=== PATIENT | female | born 1940 | race Caucasian/White ===

== ENCOUNTER 2018-07-01 18:36 | Emergency (ER) | payer MEDICARE, SELFPAY ==
[2018-07-01 18:41] VITALS: BP 141/61; PULSE 58; RESP 14; TEMP 36.9; O2SAT 97; BMI 28.6
--- NOTE | 2018-07-01 18:55 | DI.US.S_ITS ---
PROCEDURE: US PERIPH VENOUS LOW EXTREM RT INDICATIONS: RLE swelling and pain. TECHNIQUE: Real-time imaging, as well as color and pulse Doppler interrogation, were performed of the lower extremity deep veins from the inguinal ligament to the popliteal fossa. COMPARISON: None. FINDINGS: The deep veins are normally compressible, and free of intraluminal thrombus. Color and pulse Doppler demonstrate normal phasic intraluminal flow. There is normal augmentation response to distal compression maneuver. Varicosity noted in the region of the palpable lump which contains thrombus. IMPRESSION: 1. No evidence of deep vein thrombosis involving the right lower extremity. 2. Thrombosed superficial venous varicosity in the right calf. Dictated by: Fiorella Ashton MD, PhD on 07/01/2018 at 20:06 Approved by: Fiorella Ashton MD, PhD on 07/01/2018 at 20:08
--- NOTE | 2018-07-01 19:10 | ED_ITS ---
HPI - Extremity Problem <Cristela De León PA-C - Last Filed: 07/01/18 21:55> General Chief complaint: Extremity Problem,Nontraumatic Stated complaint: SENT BY [facility] FOR US FOR THROMBOSIS Time Seen by Provider: 07/01/18 18:51 Source: patient Mode of arrival: ambulatory Limitations: no limitations History of Present Illness HPI Narrative: this 78-year-old female is sent by her PCP to evaluate for DVT. She states she has always had an enlarged varicose vein on her right calf. Two days ago she noticed a hard, tender nodule in that area and yesterday it seemed more swollen and tender extending more into the medial and lateral calf. She states that she was on her feet a lot yesterday and that leg was slightly swollen as well. She has elevated at today and it is better. She states that she tends to get mild leg swelling, more on the right, when she has been on her feet for long. But has never been bothersome. She denies any other new symptoms such as chest pain or dyspnea. She has not had any recent travel, no surgery or periods of immobilization. She does not have any history of blood clots Related Data Allergies Allergy/AdvReac Type Severity Reaction Status Date / Time No Known Drug Allergies Allergy Verified 07/01/18 18:45 Review of Systems <Cristela De León PA-C - Last Filed: 07/01/18 21:55> Review of Systems All systems reviewed & are unremarkable except as noted in HPI and below Exam <Cristela De León PA-C - Last Filed: 07/01/18 21:55> Narrative Exam Narrative: GENERAL APPEARANCE: Patient sitting comfortably, in no distress. NECK/THYROID: Neck supple, no JVD. LUNGS: Clear to auscultation bilaterally. HEART: Regular rate and rhythm without murmur, normal S1, S2, no S3 or S4. EXTREMITIES: No cyanosis, trace pedal edema. Ft are warm and pink with brisk cap refill. R. calf there is a palpable, tender, ropey varicosity with mild surrounding erythema, cool to touch, no tenderness elsewhere over the calf or lower extremity. There are some tiny varicosities on the right medial ankle as well. NEUROLOGIC: Alert and oriented, normal speech, gait and coordination. Initial Vital Signs Initial Vital Signs: Vital Signs Temperature 98.4 F 07/01/18 18:41 Pulse Rate 58 L 07/01/18 18:41 Respiratory Rate 14 07/01/18 18:41 Blood Pressure 141/61 H 07/01/18 18:41 Pulse Oximetry 97 07/01/18 18:41 <DO Spencer Rod Last Filed: 07/02/18 00:02> Initial Vital Signs Initial Vital Signs: Vital Signs Temperature 98.4 F 07/01/18 18:41 Pulse Rate 58 L 07/01/18 18:41 Respiratory Rate 14 07/01/18 18:41 Blood Pressure 141/61 H 07/01/18 18:41 Pulse Oximetry 97 07/01/18 18:41 Course <Cristela De León PA-C - Last Filed: 07/01/18 21:55> Orders Ordered: ED Orders 07/01/18 18:55 US periph venous low extrem rt Stat Vital Signs - 8 hr 07/01/18 18:41 Temperature 98.4 F Pulse Rate 58 L Respiratory Rate 14 Blood Pressure 141/61 H Pulse Oximetry 97 <DO Spencer Rod Last Filed: 07/02/18 00:02> Orders Ordered: ED Orders 07/01/18 18:55 US periph venous low extrem rt Stat Vital Signs - 8 hr 07/01/18 18:41 Temperature 98.4 F Pulse Rate 58 L Respiratory Rate 14 Blood Pressure 141/61 H Pulse Oximetry 97 MDM - Extremity (Nontraumatic) <Cristela De León PA-C - Last Filed: 07/01/18 21:55> Imaging Data Venous US: Radiologist's impression: [place] [address] Ultrasound Report Signed Patient: Albertina Bajwa RMR#: [id number] : 1940Acct:[id number] Age/Sex: 78 / FDate of Service: 07/01/18 Loc: ED Accession Number: [id number] Procedure: US periph venous low extrem rt Ordering Provider: Cristela De León P.A-C PROCEDURE: US PERIPH VENOUS LOW EXTREM RT INDICATIONS: RLE swelling and pain. TECHNIQUE: Real-time imaging, as well as color and pulse Doppler interrogation, were performed of the lower extremity deep veins from the inguinal ligament to the popliteal fossa. COMPARISON: None. FINDINGS: The deep veins are normally compressible, and free of intraluminal thrombus. Color and pulse Doppler demonstrate normal phasic intraluminal flow. There is normal augmentation response to distal compression maneuver. Varicosity noted in the region of the palpable lump which contains thrombus. IMPRESSION: 1. No evidence of deep vein thrombosis involving the right lower extremity. 2. Thrombosed superficial venous varicosity in the right calf. Dictated by: Fiorella Ashton MD, PhD on 07/01/2018 at 20:06 Approved by: Fiorella Ashton MD, PhD on 07/01/2018 at 20:08 Discharge Plan Departure Patient Disposition: Home Clinical Impression: Thrombophlebitis of superficial veins of right lower extremity Discharge Date/Time: 07/01/18 20:56 Interventions: ED Discharge Assessment Last Done: 07/01/18 20:56 Instructions: Superficial Thrombophlebitis Activity Restrictions/Additional Instructions: please return to the emergency room if you have any new symptoms such as chest pain or trouble breathing. Follow up with your PCP in a few days for recheck. Please elevate your leg for swelling as you have been and compression stockings may help comfort. You can increase your aspirin a little bit or take Aleve or ibuprofen as needed for pain . Warm packs may be helpful as well Referrals: Endy Carranza [Non-Staff] - <Endy Vann DO - Last Filed: 07/02/18 00:02> Cosign ED Attending Salvador Attestation: I was available for consultation during this patient's emergency department encounter
== END 2018-07-01 20:56 | disposition home or self-care (01) ==
PROVIDERS: Emergency Provider Internal Medicine
DX: I80.01 Phlebitis and thrombophlebitis of superficial vessels of right lower extremity (principal)
CPT/HCPCS: 93971; 99282; 99284

== ENCOUNTER → 2020-09-22 10:54 | Outpatient (CLI) | payer MEDICARE, SELFPAY ==
--- NOTE | 2020-09-22 11:01 | DI.RAD.S_ITS ---
PROCEDURE: XR HIP W PEL IF DONE RYAN MIN 4V INDICATIONS: HIP/ BACK PAIN TECHNIQUE: AP pelvis with lateral view(s) of the bilateral hip(s). COMPARISON: None. FINDINGS: Bones: No fractures or dislocations. Pelvic ring appears intact. No suspicious bony lesions. Note is made of symmetric moderately severe to severe hip joint osteoarthritis bilaterally. Soft tissues: The visualized bowel gas pattern is normal. No suspicious soft tissue calcifications. IMPRESSION: No trauma found. Moderately severe to severe hip joint space narrowing with near [id number] articulation bilaterally. Dictated by: Pancho Eric M.D. on 09/22/2020 at 12:53 Approved by: Pancho Eric M.D. on 09/22/2020 at 12:54
--- NOTE | 2020-09-22 11:01 | DI.RAD.S_ITS ---
PROCEDURE: XR LUMBAR SPINE 2-3V INDICATIONS: HIP/BACK PAIN TECHNIQUE: 3 views of the lumbar spine were acquired. COMPARISON: None. FINDINGS: Bones: 5 [id number] vertebrae are present. There is normal bony alignment. No vertebral body compression fractures. No suspicious bony lesions. Soft tissues: Overlying bowel gas pattern is normal. No suspicious soft tissue calcifications. IMPRESSION: There is a slight degree of convex rightward scoliosis centered at L2, and degenerative disc height reduction is mild along the L3 through S1 levels of the lumbosacral spine. Subluxation is not associated. No definite nerve root impingement. Dictated by: Pancho Eric M.D. on 09/22/2020 at 12:52 Approved by: Pancho Eric M.D. on 09/22/2020 at 12:53
== END ==
PROVIDERS: PCP Family Medicine; Referring Provider Family Medicine; Visit Provider Family Medicine
DX: M54.42 Lumbago with sciatica, left side (principal); M54.41 Lumbago with sciatica, right side; M25.551 Pain in right hip; M25.552 Pain in left hip; M16.0 Bilateral primary osteoarthritis of hip; M41.86 Other forms of scoliosis, lumbar region; G89.29 Other chronic pain
CPT/HCPCS: 72100; 73522

== ENCOUNTER → 2020-10-11 11:19 | Outpatient (CLI) | payer MEDICARE, SELFPAY ==
[2020-10-12 10:35] LABS: SARS CoV19 IgG Negative (Negative)
== END ==
PROVIDERS: PCP Family Medicine; Referring Provider Family Medicine; Visit Provider Family Medicine
DX: Z20.822 Contact with and (suspected) exposure to COVID-19 (principal)
CPT/HCPCS: 36415; 86769

== ENCOUNTER → 2020-11-10 12:16 | Outpatient (CLI) | payer MEDICARE, SELFPAY ==
[2020-11-10 21:20] LABS: COVID19 - ORCAS (NP or Nasal) Negative (Negative)
== END ==
PROVIDERS: PCP Family Medicine; Visit Provider Family Medicine
DX: Z20.822 Contact with and (suspected) exposure to COVID-19 (principal)
CPT/HCPCS: U0003

== ENCOUNTER → 2020-11-13 09:53 | Outpatient (CLI) | payer MEDICARE, SELFPAY ==
--- NOTE | 2020-11-13 | DI.ECHO.S_ITS ---
[facility]---------+ [facility] +---------+ : : [address] : : : : [id number] : : : : Phone: [phone]+ Echocardiogram Report + + :Name: LAITH PHELPS Study Date: 11/13/2020 Height: 67.5 in: :[facility] ReadingLocation: Weight: 195 lb : : Gender: Female BSA: 2.0 m2 : :: 1940 Age: 80 yrs BP: 152/74 mmHg: :Reason For Study: PALIPTATIONS : :Ordering Physician: JOHN, : :ED Performed By: Yareli Hastings : :Referring: ED LOPEZ D : + + Interpretation Summary The left ventricle is normal in size and wall thickness. Left ventricular systolic function appears normal without focal wall motion abnormalities. The ejection fraction is estimated to be 60-65%. LV ejection fraction has not changed. Diastolic parameters suggest probable normal left ventricular diastolic function and normal filling pressures. The right ventricle is normal in size and function. Pulmonary artery pressures cannot be estimated because of the lack of a measurable TR jet velocity but the IVC suggests a CVP of around 3 mmHg. The left atrium is severely dilated. Right atrial size is normal. There is no significant valvular heart disease. The aortic root is normal size. Procedure: A two-dimensional transthoracic echocardiogram with color flow and Doppler was performed. The study quality was technically adequate. Comparison is made with the echocardiogram of 05/08/2018. The patient was in sinus bradycardia with heart rates between 49-60 bpm during the exam. Left Ventricle: The left ventricle is normal in size and wall thickness. Left ventricular systolic function appears normal without focal wall motion abnormalities. The ejection fraction is estimated to be 60-65%. Diastolic parameters suggest probable normal left ventricular diastolic function and normal filling pressures. Right Ventricle: The right ventricle is normal in size and function. Atria: The left atrium is severely dilated. Right atrial size is normal. There is no Doppler evidence for an interatrial shunt. Mitral Valve: There is mild to moderate mitral annular calcification. The mitral valve is normal in structure and function. There is trace mitral regurgitation. Aortic Valve: The aortic valve is trileaflet. The aortic valve opens well. There is no aortic valve stenosis. No aortic regurgitation is present. Tricuspid Valve: The tricuspid valve is normal in structure and function. There is mild tricuspid regurgitation. Pulmonary artery pressures cannot be estimated because of the lack of a measurable TR jet velocity but the IVC suggests a CVP of around 3 mmHg. Pulmonic Valve: The pulmonic valve leaflets are thin and pliable; valve motion is normal. There is no pulmonic valvular regurgitation. There is no significant valvular heart disease. Great Vessels: The aortic root is normal size. The dimensions of the ascending aorta are normal. The IVC is of normal diameter and collapses greater than 50% with a sniff. This suggests a low right atrial pressure of 3 mm Hg. Pericardium/ Pleura There is no pericardial effusion. There is no pleural effusion. MMode/2D Measurements & Calculations LVIDd: 5.2 cm LVOT diam: 2.0 cm LVIDs: 3.4 cm Ao root diam: 2.7 cm FS: 34.4 % asc Aorta Diam: 3.3 cm EPSS: 0.79 cm Ao Arch Diam (Prox Trans): 3.0 cm IVSd: 1.1 cm LVPWd: 1.1 cm LV guillermo. diameter/BSA (cm/m^2): 2.6 LV sys. diameter/BSA (cm/m^2): 1.7 LA A2 area: 28.8 cm2 RA long axis: 4.9 cm LA A4 area: 25.8 cm2 RA area: 17.3 cm2 LA length (vol): 6.2 cm RA vol: 51.4 ml LA vol: 102.4 ml RA : 25.6 ml/m2 LA vol index: 50.9 ml/m2 IVC diam: 1.8 cm RVD1 (basal): 3.3 cm TAPSE: 2.6 cm Doppler Measurements & Calculations Ao V2 max: 141.2 cm/sec LVOT Max Tres: 95.1 cm/sec Ao V2 mean: 98.2 cm/sec LV V1 max P.6 mmHg Ao max P.0 mmHg LV V1 VTI: 26.9 cm Ao mean P.3 mmHg MONE(I,D): 2.2 cm2 Ao V2 VTI: 37.8 cm MONE(V,D): 2.1 cm2 sev ratio: 0.71 MONE indexed to BSA (cm^2/m^2): 1.1 MV E max tres: 82.2 cm/sec TR max tres: 267.3 cm/sec MV A max tres: 79.9 cm/sec TR max P.7 mmHg MV E/A: 1.0 PA V2 max: 96.0 cm/sec Med Peak E' Tres: 5.7 cm/sec PA V2 mean: 66.8 cm/sec E/E' med: 14.5 PA mean P.0 mmHg Lat Peak E' Tres: 8.3 cm/sec PA pr(Accel): 20.8 mmHg E/E' lat: 9.9 E/e' average: 12.2 MV dec time: 0.26 sec SV(LVOT): 84.6 ml Reading Physician:07:22 PM
--- NOTE | 2020-11-13 15:23 | PM.TREADMILL ---
Cardiac Stress Test Report Referral & Results Date Patient Seen: 11/13/20 Time Patient Seen: 15:23 Requesting provider: Endy Carranza Indication: palpitations Rest ECG: Sinus rhythm Procedure Note: Standard Fracisco protocol, 4:46, 4.6 METS Good exercise capacity, GAURANG -4% Nomal hemodynamic response to exercise No chest pain or anginal symptoms No significant ST changes at peak exercise Rare PVC, couplet Impression: Normal exercise stress test Nuclear images pending Please note: Actual ECG tracings can be found in the PACS system.
--- NOTE | 2020-11-13 18:47 | DI.NM.S_ITS ---
DATE OF SERVICE: 11/13/2020 PROCEDURE PERFORMED: Exercise treadmill stress and rest myocardial perfusion imaging study with gating to assess ejection fraction and regional wall motion. ORDERING PROVIDER: Dr. Endy Carranza. INDICATIONS: The patient is an 80-year-old female with palpitations and an abnormal ECG. CARDIAC STRESS: The patient was able to exercise for 4 minutes 46 seconds on a standard Fracisco protocol suggesting average exercise capacity with an GAURANG of -4%. She had a normal heart rate response, achieving a maximum heart rate of 135 BPM (96% of her predicted maximum). She had a moderate hypertensive blood pressure response to exercise with a resting blood pressure of 160/84, increasing to a maximum of 220/90. Her resting ECG shows sinus rhythm with fairly normal ST segments. With exercise, there were no significant ST-segment shifts. She had occasional PVCs, rarely in couplets. It is notable that with exercise, criteria for right atrial enlargement became more prominent. At 2 minutes 25 seconds of exercise at a heart rate of 121 BPM, 25.4 millicuries of technetium-99m Myoview was injected and she was imaged 15 minutes later using a gated SPECT acquisition protocol. Earlier in the day while at rest, she had been injected with 12.5 millicuries of technetium-99m Myoview was imaged 30 minutes later, again using a gated SPECT acquisition protocol. FINDINGS: 1. Raw Data: There is fair myocardial tracer uptake with mild breast shadows noted. Lung/heart ratio was normal at 0.39 with a TID ratio at the upper limits of normal at 1.20, although it is not evident visually. 2. Quantitated gated SPECT: Post-stress ejection fraction is estimated at 74% without any focal wall motion abnormality and specifically the inferior wall appears to have brisk contractility. The resting ejection fraction is 80% with an end- diastolic volume of 88 mL. 3. Myocardial perfusion imaging: Post-stress supine images show a mild perfusion defect in the mid inferior wall extending to but not including the apex in a pattern that would be consistent with diaphragmatic attenuation, supported by its complete resolution on the prone images, revealing a normal perfusion pattern. The resting images show a similar perfusion pattern to that of the post-stress supine images with minimal, if any, improvement inthe defect. IMPRESSION: 1. Normal myocardial perfusion study for ischemia. 2. Mild fixed inferior defect that resolves with prone imaging, most consistent with diaphragmatic attenuation artifact. There is no compelling evidence for myocardial ischemia or previous myocardial infarction. 3. Normal left ventricular systolic function without focal wall motion abnormality. 4. Average exercise capacity without angina or ECG evidence of ischemia. She had a hypertensive blood pressure response to exercise with occasional PVCs, rarely in couplets, with stress and criteria for right atrial enlargement became more prominent with exercise. Albertina Bajwa - /fawad/[facility] doc#: [id number]/job#: [id number] dd: 11/13/2020 16:48:00 dt: 11/13/2020 18:17:00 DICTATING MD/COPIES TO: Iván Don MD; Endy Carranza M.D. COPIES MNE: YVES;
== END ==
PROVIDERS: PCP Family Medicine; Referring Provider Family Medicine; Visit Provider Family Medicine
DX: R00.2 Palpitations (principal); I07.1 Rheumatic tricuspid insufficiency
CPT/HCPCS: 78452; 93017; 93306; A9502

== ENCOUNTER → 2021-03-07 08:37 | Outpatient (CLI) | payer MEDICARE, SELFPAY ==
[2021-03-07 19:15] LABS: Add Manual Diff / Slide Review NO; Basophils Absolute Auto 0 /uL (0-100); Basophils Percent Auto 0.5 % (0-2); Eosinophils Absolute Auto 200 /uL (0-450); Eosinophils Percent Auto 2.1 % (2-4); Hematocrit 41.8 % (36-46); Hemoglobin 13.6 g/dL (12.0-16.0); Lymphocytes Absolute Auto 2400 /uL (1100-4500); Lymphocytes Percent Auto 26.7 % (25-40); Mean Corpuscular HGB Conc 32.5 % (30-36); Mean Corpuscular Hemoglobin 29.2 PG (26-34); Mean Corpuscular Volume 89.7 fL (80-100); Monocytes Absolute Auto 700 /uL (0-900); Monocytes Percent Auto 8.3 % (3-14); Neutrophils Absolute Auto 5600 /uL (1500-7000); Neutrophils Percent Auto 62.4 % (50-75); Platelet Count 297 X10^3/uL (150-400); Red Blood Cell Count 4.66 X10^6/uL (4.0-5.2); White Blood Cell Count 8.9 X10^3/uL (4.5-11.0)
[2021-03-07 19:28] LABS: BUN Creatinine Ratio 22.7 (6-22); Blood Urea Nitrogen 22 mg/dL (7-17); Calcium 9.8 mg/dL (8.4-10.2); Carbon Dioxide 29 mmol/L (22-32); Chloride 101 mmol/L (98-107); Estimated Glomerular Filt Rate 55.1 mL/min (>60); Glucose 97 mg/dL (80-110); HEMOLYSIS < 15 (0-50); Potassium 4.3 mmol/L (3.4-5.1); Sodium 137 mmol/L (137-145)
[2021-03-07 19:42] LABS: Hemoglobin A1C% w Est Avg Glu 5.1 % (4.0-6.0)
[2021-03-08 19:33] LABS: Appearance Urine UA CLEAR; Bilirubin Urine UA NEGATIVE (NEGATIVE); Color Urine UA YELLOW; Glucose Urine UA NEGATIVE (Negative); Ketones Urine UA NEGATIVE (NEGATIVE); Leukocyte Esterase Urine UA TRACE (NEGATIVE); Nitrite Urine UA NEGATIVE (Negative); Occult Blood Urine UA NEGATIVE (Negative); Protein Urine UA TRACE (Negative); Urobilinogen Urine UA 0.2 E.U./dL (0.2)
[2021-03-08 19:57] LABS: Amorphous Sediment Urine 1+; Bacteria Urine Few (2-10); Mucus Urine 1+ (Negative); Squamous Epithelial Cell Urine 1-5 /HPF (0-5/HPF); WBC Urine 5-10/HPF (0-5/HPF)
[2021-03-08 19:58] LABS: Culture Indicated Urine Specimen Cultured
== END ==
PROVIDERS: Orthopaedic Surgery
DX: Z01.812 Encounter for preprocedural laboratory examination (principal); N39.0 Urinary tract infection, site not specified; R00.2 Palpitations; R73.9 Hyperglycemia, unspecified
CPT/HCPCS: 80048; 81001; 83036; 85025; 87086

== ENCOUNTER → 2021-04-02 14:09 | Outpatient (CLI) | payer MEDICARE, SELFPAY ==
[2021-04-02 17:05] LABS: COVID19 -Nasal RAPID Negative (Negative)
== END ==
PROVIDERS: PCP Physician Assistant; Visit Provider Nurse Practitioner Family
DX: Z01.812 Encounter for preprocedural laboratory examination (principal); Z20.822 Contact with and (suspected) exposure to COVID-19
CPT/HCPCS: 87635; C9803

== ENCOUNTER 2021-04-03 06:09 | Day surgery (SDC) | payer MEDICARE, SELFPAY ==
[2021-03-30 11:54] VITALS: BMI 28.8
[2021-04-03] VITALS (16 sets, daily range): BP systolic 103–152; BP diastolic 33–75; PULSE 51–63; RESP 10–18; TEMP 35.7–37.3; O2SAT 95–98; BMI 28.5
--- NOTE | 2021-04-03 06:32 | DI.RAD.S_ITS ---
PROCEDURE: XR HIP W PEL IF DONE RT 2V INDICATIONS: inner op TECHNIQUE: Four intraoperative fluoroscopic view(s) of the hip acquired. COMPARISON: [facility], , XR HIP W PEL IF DONE RYAN 3TO4V, 09/22/2020, 11:04. FINDINGS: Intraoperative views of the pelvis and right hip demonstrate a right hip prosthesis in place. Appropriate alignment with internal and external rotation. No unexpected fractures. IMPRESSION: Intraoperative fluoroscopy for right hip arthroplasty. Dictated by: Adrianne Alanis M.D. on 04/03/2021 at 14:54 Approved by: Adrianne Alanis M.D. on 04/03/2021 at 14:55
[2021-04-03] MEDS: ACETAMINOPHEN 325 MG TABLET 975 MG PO (07:13)
[2021-04-03] MEDS: CELECOXIB 200 MG CAPSULE PO (07:13)
[2021-04-03] MEDS: PREGABALIN 75 MG CAPSULE PO (07:13)
[2021-04-03] MEDS: VANCOMYCIN 1,000 MG/200 ML PIGGYBACK 200 MG IV (07:13)
--- NOTE | 2021-04-03 07:35 | PM.PREOP ---
Pre-operative Note COVID-19 COVID-19 status: Negative Interval Note History & Physical reviewed/Exam performed by Physician: Yes Changes to H&P: No
--- NOTE | 2021-04-03 07:36 | PM.OP.1 ---
Operative Date/Time/Diagnoses Date of procedure: 04/03/21 Time of procedure: 07:50 Pre-op diagnosis: right hip OA Post-op diagnosis: same Procedure & Clinicians Procedure: Right total hip arthroplasty anterior approach Same procedure as scheduled: Yes Indications: The patient has had progressively worsening right hip pain with radiographic changes consistent with arthritis. Non-operative management has failed and the patient has requested total hip replacement. The risks, benefits and alternatives to surgery were discussed with the patient prior to proceeding. Risks discussed included, but were not limited to, failure to relieve pain, leg length discrepancy, dislocation, stiffness, infection, nerve damage, deep venous thrombosis, pulmonary embolism, stroke, coma, heart attack, permanent paralysis and , as well as the potential need for eventual revision of the prosthetic. Surgeon: Candelaria To Vending Machine Mechanic: Naresh Araiza Anesthesia Type: General and Spinal Operative Notes Findings: Severe right hip osteoarthritis, adequate stability, soft bone Closure Type: primary Specimen(s): none sent Prosthetic devices, grafts, tissues, transplants, or devices: To and Nephew anthology size 7 standard offset,-3 Oxinium head, 52 mm cup R3, one 6.5 mm screw, neutral poly liner Estimated Blood Loss (mL): 250 Blood products transfused: none Procedure in detail: The patient was brought to the operating room. Patient was carefully positioned in the supine position. Time-out was performed and antibiotics were given. Anesthesia was induced. She was positioned in the on the table in order to allow hyperextension of the hip. The rightlower extremity was prepped and draped in a standard sterile fashion. An anterior right hip incision was made 1 fingerbreadth lateral to the anterior superior iliac spine and extended distally towards the greater trochanter. Dissection was carried out through skin and subcutaneous tissues. Superficial hemostasis was achieved. The fascia over the tensor fascia edenilson was defined and incised with a knife. Two Allis clamps were used to grasp the fascia. Tensor fascia edenilson was retracted laterally. A gelpi retractor was placed. Dissection was carried out down along the neck. There was good visualization of the femoral neck. A Cobra was placed superior to the neck and the gluteus fibers were carefully stripped from that superior aspect of the capsule. A 2nd retractor was placed along the inferior aspect of the neck. The rectus insertion along the capsule was partially released. A 3rd retractor that was then gently placed over the rim of the acetabulum under the rectus. Capsule was carefully incised and released from the intertrochanteric line circumferentially superior to the mid sagittal line and inferiorly to the mid sagittal line until the lesser trochanter was palpable. A tag stitch was placed both in the superior and inferior limb of the capsular insertion. Along the acetabulum capsule was also released up to the mid sagittal 12:00 position. A portion of the labrum was resected. A saw was used to perform an osteotomy at the level of the intertrochanteric line and the junction of the superior femoral neck leaving approximately 1 finger breath of residual inferior neck above the lesser trochanter. A 2nd cut was made along the femoral neck at the base of the head and a napkin ring of neck was removed. Corkscrew was placed in the femoral head and the head was removed without difficulty. Retractors were then repositioned around the acetabulum. Residual labrum was resected and additional osteophytes were removed. A reamer that was 4 mm below the templated size was placed by hand in the acetabulum and it was reamed to centralize the acetabulum. It was then reamed up to 2 under the templated size and fluoroscopy was brought in to confirm the position of the reaming and depth of reaming. I reamed 1 under the anticipated size. A trial cup was placed and noted that it was appropriately sized and fluoroscopy confirmed position and depth. The component was open and inserted without difficulty fluoroscopic imaging was used to confirm that the cup had been adequately seated and was well positioned. It was further stabilized with a single screw. poly liner was placed. The cup was tested and noted to be stable. Attention was then directed to the femur. The femur was gently hyperextended additional capsular release was performed as needed in order to allow adequate visualization of the proximal femur with elevation of the femur. Patient was placed in a hyperextended slightly adducted position with maximum external rotation. Box osteotome was used to check for any residual neck as well as sclerotic bone along the trochanter. [place] pepper was placed in the femur. Additional broaching was performed. Canal finder was used to determine the alignment of the canal and position. Size 1 broach was placed. The canal was then appropriately broached up to the templated size as long as there was adequate stability of the broach and serial advancement of the broach without excessive impingement. Specific attention was directed at avoiding varus attempting to direct the distal aspect of the broach more anteriorly and avoiding excessive anteversion. Trial reduction showed acceptable range of motion, good stability, no posterior impingement, buddhism of leg length and appropriate lateral shuck. I also hyperflexed the hip and checked that there was no impingement anteriorly and there was good stability with flexion, adduction and internal rotation. Marcaine and Exparel were injected. The stem was placed without difficulty. Repeat trial reduction and x-ray showed acceptable overall position, length, and no evidence of the femoral fracture. Final head was placed. Wound was meticulously irrigated with normal saline. The hip was reduced and additional Exparel and Marcaine were injected. The capsule was closed with interrupted nonabsorbable sutures. The fascia of the tensor was closed with interrupted and running Vicryl. No drain was placed. Any tensor fascia edenilson muscle that appeared to be contused or injured which was a minimal amount was carefully resected. Capsule around the tensor was injected with Exparel and Marcaine. The skin was closed with barbed stitches for the subcutaneous tissue and skin. We also used surgical glue. The wound was dressed sterilely. Brief Betadine soak was also used and was meticulously irrigated with normal saline. Patient was transferred to recovery room in satisfactory condition. Complications: none Post-operative Condition: stable Disposition: Acute Care Plan for aftercare: The patient will be maintained on a standard total hip replacement protocol with weight bearing as tolerated and anterior hip precautions. The patient will receive Aspirin and sequential compression devices for DVT prophylaxis. The patient will be discharged home when safe for the home environment.
[2021-04-03] MEDS: TRANEXAMIC ACID 1,000 MG VIAL 1000 MG INJ ×2 (08:15→10:43)
--- NOTE | 2021-04-03 08:15 | SUR.PREOP ---
Hearing aids received from [employer] , placed in pt's belonging bag.
[2021-04-03] MEDS: CEFAZOLIN 1 GM VIAL IV (08:16)
--- NOTE | 2021-04-03 08:34 | SUR.OPER ---
Supine on padded [place] table with bilateral legs secured in padded positioning boots and suspended in positioning spars, operative leg in traction per surgeon. Head on one pillow. Arm on non-operative side secured on padded armboard <90 degrees abduction. Arm on operative side padded and resting across chest then secured with tape over sheet. Padded perineal post in place per surgeon.
[2021-04-03] MEDS: BUPIVACAINE LIPOSOME 266 MG/20 ML VIAL INJ (08:46)
[2021-04-03] MEDS: BUPIVACAINE 0.25% (PF) VIAL 30 ML INJ (08:48)
[2021-04-03] MEDS: EPINEPHrine 1 MG/ML SUBCUT (08:49)
--- NOTE | 2021-04-03 09:00 | DI.RAD.S_ITS ---
PROCEDURE: XR HIP W PEL IF DONE RT 2V INDICATIONS: Right ANTERIOR HIP TOTAL TECHNIQUE: AP pelvis with lateral view(s) of the right hip(s). COMPARISON: [facility], CAT, XR HIP W PEL IF DONE RT 2V, 04/03/2021, 9:30. FINDINGS: Bones: Patient is status post right hip arthroplasty. The prosthesis appears in appropriate position. No unexpected fractures. There are severe degenerative changes involving the left femoroacetabular joint and moderate changes involving the pubic symphysis. Soft tissues: Expected postoperative gas in the soft tissues. No unusual retained foreign body IMPRESSION: 1. Expected appearance post right hip arthroplasty. 2. Severe left hip arthropathy. Dictated by: Adrianne Alanis M.D. on 04/03/2021 at 14:55 Approved by: Adrianne Alanis M.D. on 04/03/2021 at 14:57
[2021-04-03] MEDS: LACTATED RINGERS 1,000 ML 42 ML IV (10:49)
[2021-04-03] MEDS: OXYCODONE IR 5 MG TABLET PO ×2 (11:54→12:47)
[2021-04-03] MEDS: LACTATED RINGERS 1,000 ML 125 ML IV ×2 (12:24→20:43)
[2021-04-03] MEDS: IBUPROFEN 400 MG TABLET PO ×3 (12:47→20:43)
--- NOTE | 2021-04-03 13:55 | PT.IIE ---
Current Diagnoses Unilateral primary osteoarthritis, right hip (04/03/21) Surgery Performed Operation Date: 04/03/21 07:45 Actual Procedures p Total Hip Arthroplasty/Anterior Approach(Right) - Candelaria To MD Medical History (Last Updated 03/30/21 @ 13:07 by Leigh Jaeger RN) Arrhythmia Colon cancer screening History of Mohs micrographic surgery for skin cancer Hypertension, essential Meningioma Osteoarthritis Routine general medical examination at health care facility Screening for breast cancer Screening for lipid disorders Screening for osteoporosis Venous stasis Physical Therapy Inpatient Evaluation/Re-Eval M1 PT/OT-IP Prior Functional Status Start: 04/03/21 15:13 Freq: NEEDED Status: Active Protocol: Document 04/03/21 13:55 AB (Rec: 04/03/21 15:32 AB [id number]) Medical Review Prior Functional Status Medical History Reviewed Yes Communication able to make needs known but has short term memory issues Mobility and Gait pt stated that she is independent with all mobilities and ambulation without AD Social History Household Members none Living Arrangements House Number of Floors (Floors) 3 or More Floors Number of Stairs To Enter/Railing? 8 steps R rail ascending to enter the house; can use the ramp from the back but needs to walk farther > 50 ft 18 steps with R rail ascending to get to bedroom level Home Environment High Toilet,Walk in Shower Home Equipment Front Wheel Walker,Shower Seat without Backrest Additional Social History Comment pt stated that her daughter will be assisting her at home M2 PT-IP Current Condition Start: 04/03/21 15:13 Freq: NEEDED Status: Active Protocol: Document 04/03/21 13:55 AB (Rec: 04/03/21 15:32 AB [id number]) Physical Therapy Current Condition Current Condition Evaluation Date 04/03/21 Treatment Diagnosis s/p R GELACIO anterior approach; difficulty in walking Onset Date 04/03/21 Precautions Anterior Hip Precautions No Hip Extension,No Hip External Rotation Weight Bearing Status Weight Bearing Status Weight Bear as Tolerated Allowed Weight Bearing Amount (enter % RLE WBAT or #) (%) M3 PT-IP Subjective Start: 04/03/21 15:13 Freq: NEEDED Status: Active Protocol: Document 04/03/21 13:55 AB (Rec: 04/03/21 15:32 AB [id number]) Subjective Physical Therapy Visit Type Type Initial Evaluation Visit Start Time 13:55 Visit Stop Time 15:08 Total Visit Minutes 73 Number of PRINCIPAL STATISTICAL PROGRAMMER Visits 0 Physical Therapy Visit Comments Patient Comments agreeable to do PT Therapy Pain Assessment Pain When Pain Assessed At Rest Pain Present Pain Present Pain Reported Location Right Hip Intensity 1 Scale Used Numeric (0 - 10) Pain Management Techniques Apply Cold,Distraction, Modification of Treatment,Re- positioning,Timing of Activity with Medications M4 PT-IP Mobility and Gait Start: 04/03/21 15:13 Freq: NEEDED Status: Active Protocol: Document 04/03/21 13:55 AB (Rec: 04/03/21 15:32 AB [id number]) PT-Bed Mobility Assessment Supine to Sit Supine to Sit Standby Assistance Sit to Supine Sit to Supine Standby Assistance PT-Transfer Assessment Sit to and From Stand Sit to and from Stand Minimal Assistance,Moderate Assistance,1 Person Assistance ,Use of Upper Extremities Equipment Transfer Assistive Device Gait Belt,Front Wheeled Walker Orthotic/Prosthetic Devices or Brace: No Transfers Transfer Destination Bedside Commode Transfer Technique ambulated Transfer Ability Level of Assist Minimal Assistance,Moderate Assistance,1 Person Assistance ,Use of Upper Extremities Comments Mobility Comments educated pt regarding hip precautions. pt has short term memory issues and requires cues to recall. pt stated that the meds is affecting her thinking. BP supine: 137/75. pt completed supine to sit SBA and cues. required increase time to complete task and pt stated that she is thinking things through to complete but is still confuse on how to move BLE to maintain her precautions. pt was able to sit on EOB SBA. c/o dizziess. BP: 155/76. completed sit to stand min to mod A and cues. ambulated ~ 5 ft using FWW but with very slow movement and increase reaction time to complete tasks as directed. opted to place bedside commode next to pt for safety due to pt's difficulty following directions. pt sat on bedside commode but unable to use. completed sit to stand from bedside commode min to mod A and ambulated ~ 5 ft back to bed using FWW min to mod A and cues. completed sit to supine SBA and cues. pt can be defensive when instructed and stated that she knows how to do it. pt with B knee bend and is leaning trunk backwards to be able to lift BLE up on bed needing cues to control trunk to be able to position head into the pillow and not on the other side of the bed. positioned pt on the bed. educated pt on techniques on how to do bed mobility but the stated that she feels stronger on how she did it. informed pt that she can do it as long as she maintain her hip precautions and is safe. call light and table placed next to pt. BP: 157/78. set up caregiver training 1030 am tomorrow 04/04. Gait Assessment Gait Gait Assistance Required: Minimum Assistance,Moderate Assistance Distance (Feet) 5 Able to Maintain Weight Bearing Status Yes During Gait Assistive Devices Assistive Device Gait Belt,Front Wheeled Walker Orthotic/Prosthetic Devices or Brace: No Gait Deviations General Gait Pattern Decreased Stride Length, Decreased Feet Clearance Factors Limiting Gait Function Factors Limiting Gait Function Decreased Activity Tolerance, Decreased Strength,Difficulty Following Directions,Limited Range of Motion,Pain,Poor Balance,Poor Safety Awareness PT-Balance Assessment Sitting Balance and Reactions Static Sitting Balance Ability Good Dynamic Sitting Balance Ability Good Standing Balance and Reactions Static Standing Balance Ability Fair Dynamic Standing Balance Ability Fair Device Used FWW M5 PT-IP Objective Assessments Start: 04/03/21 15:13 Freq: NEEDED Status: Active Protocol: Document 04/03/21 13:55 AB (Rec: 04/03/21 15:32 AB [id number]) Orientation Orientation/Cognition Level of Alertness Confusional State Orientation Name Language Function Ability Hard of Hearing Safety Awareness Decreased Safety Awareness Memory Description Short Term Impaired Gross Range of Motion Lower Extremity ROM Assessment Within Functional Limits Strength Lower Extremity Strength Assessment Right Impaired Hip 3+/5 Knee 4-/5 Muscle Tone Muscle Tone WNL Yes M6 PT-IP Treatment Start: 04/03/21 15:13 Freq: NEEDED Status: Active Protocol: Document 04/03/21 13:55 AB (Rec: 04/03/21 15:32 AB [id number]) Physical Therapy Treatment Education Education Provided Precautions,Weight Bearing Status,Post-Op Packet,Safety M7 PT-IP Assessment and Plan Start: 04/03/21 15:13 Freq: NEEDED Status: Active Protocol: Document 04/03/21 13:55 AB (Rec: 04/03/21 15:32 AB [id number]) PT Summary Assessment and Plan Potential Rehabilitation Potential Good Status of Condition at Evaluation Evolving Summary Impairments Pain,ROM,Strength,Balance, Coordination,Sensation,Tone, Cognition,Bed Mobility, Transfers,Gait,Activity Tolerance Assessment Summary pt requiring min to mod A with mobility using FWW and requires cues for safety. pt requires increase time to completing tasks and has a delay in following directions. caregiver training set up for tomorrow 04/04 at 1030 am. pt will call her daughter to come in. will continue to assess progress with mobility for safe d/c home. will also have to conduct stair climbing training. Goals Bed Mobility Goal Independent Transfer Goal Independent,Front Wheeled Walker Gait Goal Independent,Front Wheel Walker Gait Distance 200 Other Goals up/down 18 steps using R rail SBA Days to Meet Goals 5 Frequency of Treatment Frequency Of Treatment Twice a Day Treatment Plan Physical Therapy Treatment Plan Bed Mobility Training,Transfer Training,Gait Training, Therapeutic Exercise,Balance Retraining,Post Op Education, Discharge Planning,Hot or Cold Pack,Neuromuscular Re-ed, Coordination Retraining,Manual Therapy Other Recommendations and Next Treatment caregiver trainin/15 Wed Focus 1030am Precautions Anterior Hip Precautions No Hip Extension,No Hip External Rotation Other Precautions RLE WBAT Recommendations To Nursing Amount of Assist Needed 1 Person Assist Discharge Recommendations PT Discharge Recommendations Home with 24/ Assist Available,Outpatient PT Transportation Needs at Discharge Private Vehicle
[2021-04-03] MEDS: CEFAZOLIN 1 GM VIAL 2 GM IV (16:11)
[2021-04-03] MEDS: ACETAMINOPHEN 325 MG TABLET 650 MG PO ×2 (16:11→20:44)
--- NOTE | 2021-04-03 16:16 | PC.NURSE ---
Late entry for 1200: Sandra Russo at bedside asking patient admission questions. IV left forearm patent and LR started at 125 ml/hr. Skin assessment done by flex o writer operator of this note and 2nd RN Dominga. Pt is alert and oriented, no distress. On room air. Placed on continuous pulse ox and vitals are stable. Call light within reach. Medicated at 1240 by Sandra RUSSO for c/o pain. 1400: Pt up with PT walking in room with walker. Attempted to void in BSC but unable to at this time. Report given to Meena RUSSO and she was notified. Will continue to monitor.
[2021-04-03] MEDS: METOPROLOL IR 25 MG TABLET 12.5 MG PO (20:44)
[2021-04-03] MEDS: ASPIRIN EC 81 MG TABLET PO (20:44)
[2021-04-03] MEDS: DOCUSATE 100 MG CAPSULE PO (20:44)
[2021-04-04] MEDS: IBUPROFEN 400 MG TABLET PO ×3 (00:15→08:54)
[2021-04-04] MEDS: CEFAZOLIN 1 GM VIAL 2 GM IV (00:15)
[2021-04-04 05:35] LABS: Hematocrit 30.9 % (36-46); Hemoglobin 10.3 g/dL (12.0-16.0)
[2021-04-04 05:40] VITALS: BP 119/54; PULSE 63; RESP 16; TEMP 36.5; O2SAT 96
--- NOTE | 2021-04-04 08:02 | P.DS_ITS ---
History of Present Illness History of Present Illness Date Patient Seen: 04/04/21 Time Patient Seen: 08:02 Chief complaint: Right hip osteoarthritis and pain Narrative: The patient is complaining of mild right hip pain this morning, well controlled with current pain medication. She denies nausea vomiting. No numbness or tingling. No fevers/chills/night sweats. Overall she is feeling well and would like to be discharged home today to make it for the 12:00 p.m. ferr. Discharge Providers Provider Discharge Date: 04/04/21 Primary care physician: Lizbeth Diaz PA-C Consults: 04/03/21 06:32 Consult to Anesthesiology Routine Comment: Consulting Provider: Anesthesiologist Reason for consultation: Regional block for post operative pain control 04/03/21 12:02 Consult to Discharge Planning Routine Comment: Consult to Physical Therapy Evaluate & Treat Comment: Physician Instructions: post op GELACIO protocol Consult to Respiratory Therapy Evaluate & Treat Comment: Physician Instructions: Evaluate and treat Discharge provider: Lucrecia Posada PA-C Summary Hospital Course Discharge Diagnosis: Right hip osteoarthritis Hospital Course: Procedure: Right total hip arthroplasty anterior approach Same procedure as scheduled: Yes Indications: The patient has had progressively worsening right hip pain with radiographic changes consistent with arthritis. Non-operative management has failed and the patient has requested total hip replacement. The risks, benefits and alternatives to surgery were discussed with the patient prior to proceeding. Risks discussed included, but were not limited to, failure to relieve pain, leg length discrepancy, dislocation, stiffness, infection, nerve damage, deep venous thrombosis, pulmonary embolism, stroke, coma, heart attack, permanent paralysis and , as well as the potential need for eventual revision of the prosthetic . Surgeon: Candelaria To Filling Layer Up: Naresh Araiza Anesthesia Type: General and Spinal Operative Notes Findings: Severe right hip osteoarthritis, adequate stability, soft bone Closure Type: primary Specimen(s): none sent Prosthetic devices, grafts, tissues, transplants, or devices: [employer] anthology size 7 standard offset,-3 Oxinium head, 52 mm cup R3, one 6.5 mm screw, neutral poly liner Estimated Blood Loss (mL): 250 Blood products transfused: none Status at Discharge Cognitive/behavioral status at discharge: oriented Functional status at discharge: uses cane/walker Overall status at discharge: patient is progressing back to baseline Exam Vital Signs (past 8 hours): - 04/04/21 05:40 Temperature 97.7 F Pulse Rate 63 Respiratory Rate 16 Blood Pressure 119/54 L Pulse Oximetry 96 Oxygen Delivery Method Room Air Oxygen Flow Rate 0 Narrative Exam Narrative: Pleasant 81-year-old resting comfortably in bed, no acute distress. The patient was evaluated by both Dr. To and myself. Incision is clean/dry/intact. Bilateral lower extremity motor functions are grossly intact. Bilateral sensation is grossly intact to light touch. Legs are warm and dry, calves are soft, nontender to palpation. Objective Labs Result Diagrams: 04/04/21 05:05 Labs: Laboratory Results - last 24 hr 04/04/21 05:05 Hgb 10.3 L Hct 30.9 L PFSH Medical History Arrhythmia Colon cancer screening History of Mohs micrographic surgery for skin cancer Hypertension, essential Meningioma Osteoarthritis Routine general medical examination at health care facility Screening for breast cancer Screening for lipid disorders Screening for osteoporosis Venous stasis Surgical History History of bladder suspension procedure (~1994) Hx of partial thyroidectomy (~1961) Status post tonsillectomy and adenoidectomy Social History household members: none Smoking Status: Never smoker alcohol intake: current Discharge Assessment & Plan Assessment and Plan Assessment: Stable status post right total hip arthroplasty, anterior approach Plan of Treatment: -DC home today after cleared by PT -mobilize with PT, maintaining anterior hip precautions, WBAT -Aspirin 81 mg b.i.d. x6 weeks for DVT prophylaxis -continue with Tylenol, ibuprofen and Oxy as needed for pain Discharge Plan Discharge Plan Patient Disposition: Home Discharge orders & Medications Discharge Orders: Discharge (Order); Ordered 04/04/21 Ordered By: Lucrecia Posada Prescriptions: New ibuprofen 400 mg Tablet 400 mg PO Q4HR Qty: 30 RF: 0 oxycodone 5 mg Tablet 5 mg PO Q3HR PRN (Reason: Pain, Moderate (4-6)) Qty: 42 RF: 0 famotidine [Pepcid AC] 20 mg tablet 20 mg PO BID PRN (Reason: To protect stomach from ibuprofen/aspirin) Qty: 30 RF: 0 Continued acetaminophen 500 mg tablet 500 mg PO Q4H MDD 6 tablets (3000 mg) per day PRN (Reason: Pain) Qty: 90 RF: 0 nitroglycerin 0.4 mg tablet, sublingual 0.4 mg sublingual Q5M PRN (Reason: Chest Pain) RF: 0 metoprolol tartrate 25 mg tablet See Rx Instructions .ROUTE .COMPLEX RF: 0 Changed aspirin [Adult Low Dose Aspirin] 81 mg tablet,delayed release (DR/EC) 81 mg PO BID PRN (Reason: To prevent blood clots x6 weeks) Qty: 90 RF: 0 Follow up/Referrals: Lizbeth Diaz PA-C [Primary Care Provider] - Candelaria To MD [Physician] - (10-14 days for postoperative visit) Diet/Activity/Treatments Diet: Diet as Tolerated and Regular Activity: -weightbearing as tolerated with front wheel walker -maintain anterior hip precautions -continue with home exercises as instructed by Physical therapy, continue walking Cold/Heat Therapy: -use ice as needed for pain Other treatments: -aspirin 81 mg twice daily x6 weeks to prevent blood clots -Tylenol (max 3000 mg per day) plus ibuprofen for pain -use oxy 1/2-1-2 tablets as needed for pain -use OTC constipation medications as needed with Oxy -Use Pepcid OTC as needed to protect stomach from ibuprofen and aspirin Skin/Wound/Dressing Care Report to your healthcare provider any signs of infection, such as:: chills, fever, night sweats, unusual drainage and unusual redness Dressing: -keep dressing intact -okay to shower with incision covered -call the office if dressing becomes wet, soiled, saturated Visit Report/Discharge Packet Instructions: DI for Hip Replacement Stand Alone Forms: Surgery Discharge Discharge Data Primary Care Provider: Lizbeth Diaz Attending Provider: Candelaria To
[2021-04-04 08:03] VITALS: BP 129/47; PULSE 61; RESP 17; TEMP 36.7; O2SAT 95
[2021-04-04] MEDS: METOPROLOL IR 25 MG TABLET PO (08:54)
[2021-04-04] MEDS: ASPIRIN EC 81 MG TABLET PO (08:54)
[2021-04-04] MEDS: DOCUSATE 100 MG CAPSULE PO (08:54)
[2021-04-04] MEDS: ACETAMINOPHEN 325 MG TABLET 650 MG PO (08:54)
--- NOTE | 2021-04-04 10:03 | PC.NURSE ---
Assess- Patient is alert and oriented x3. She has an aquacel dressing to her r.anterior hip. Given tylenol and ibuprofen for complaints of pain 12/28 this has been effective for pain control. CMS wnl and ppx2. Daughter in for care given training at 1030 and then she is hoping to leave at noon to catch a 1230 ferry to [facility].
--- NOTE | 2021-04-04 10:52 | PT.IPTN ---
Current Diagnoses Unilateral primary osteoarthritis, right hip (04/03/21) Surgery Performed Operation Date: 04/03/21 07:45 Actual Procedures p Total Hip Arthroplasty/Anterior Approach(Right) - Candelaria To MD Physical Therapy Treatment Note M2 PT-IP Current Condition Start: 04/03/21 15:13 Freq: NEEDED Status: Discharge Protocol: Document 04/03/21 13:55 AB (Rec: 04/03/21 15:32 AB [id number]) Physical Therapy Current Condition Current Condition Evaluation Date 04/03/21 Treatment Diagnosis s/p R GELACIO anterior approach; difficulty in walking Onset Date 04/03/21 Precautions Anterior Hip Precautions No Hip Extension,No Hip External Rotation Weight Bearing Status Weight Bearing Status Weight Bear as Tolerated Allowed Weight Bearing Amount (enter % RLE WBAT or #) (%) M3 PT-IP Subjective Start: 04/03/21 15:13 Freq: NEEDED Status: Discharge Protocol: Document 04/04/21 10:10 SP (Rec: 04/04/21 12:55 SP [id number]) Subjective Physical Therapy Visit Type Type Treatment Note Visit Start Time 10:10 Visit Stop Time 10:52 Total Visit Minutes 42 Notes Daughter present and completed caregiver training with assist required throughout tx. Number of ASSISTANT PROFESSOR OF COMMUNICATION Visits 1 Physical Therapy Visit Comments Patient Comments Pt agreeable to working with therapy. Patient Goals return home with daughters assist. Therapy Pain Assessment Pain When Pain Assessed During Mobility Pain Present Pain Present Pain Reported Location Right Hip Intensity 2 Scale Used Numeric (0 - 10) Description With Movement Pain Management Techniques Apply Cold,Re-positioning, Timing of Activity with Medications M4 PT-IP Mobility and Gait Start: 04/03/21 15:13 Freq: NEEDED Status: Discharge Protocol: Document 04/04/21 10:10 SP (Rec: 04/04/21 12:55 SP [id number]) PT-Bed Mobility Assessment Supine to Sit Supine to Sit Standby Assistance Sit to Supine Sit to Supine Standby Assistance Scooting Scooting to Edge of Bed Standby Assistance PT-Transfer Assessment Sit to and From Stand Sit to and from Stand Standby Assistance,Contact Guard Assistance,Use of Upper Extremities Equipment Transfer Assistive Device Gait Belt,Straight Cane,Front Wheeled Walker Orthotic/Prosthetic Devices or Brace: No Transfers Transfer Destination Chair Transfer Technique ambulated using FWW, SPC Transfer Ability Level of Assist Standby Assistance,Contact Guard Assistance,1 Person Assistance,Use of Upper Extremities Comments Mobility Comments Pt good recall to precautions, Instructed post op exercises: AP, quad and glut sets, HS. completed supine>sit, scoot to EOB to L SBA. Pt reported lightheaded sitting at EOB, cued for slow breathes and stationary for safety while assessed vitals. BP taken by nursing 1 hr prior in supine BP 134/56, seated with ASSISTANT PROFESSOR OF COMMUNICATION BP 115/50 HR 58 SaO2 50 on RA. Sit>stand CGA for safety, after 2 min usign fWW BP 119/ 50 HR 76. Pt stated felt better and wanting to walk in the hallway. Daughter provided CGA initially for safety while ASSISTANT PROFESSOR OF COMMUNICATION provided w/c follow, not needed during tx. Pt ambulated usign fWW, cues as needed for maintaining no hip ext with RLE precautions with self corrections. Pt ambulated room >stairs, completed 18 stairs R HR and SPC in LUE, then ambulated back to room using SPC while ASSISTANT PROFESSOR OF COMMUNICATION provide CGA- 5%A for balance safety due to minor sways and pt self recovery, cuing education for proper patterning of SPC in LUE patterning 2pt gait with RLE. Daughter provided w/c follow but not needed. Pt returned to chair when entered room SBA using SPC. ASSISTANT PROFESSOR OF COMMUNICATION provided CP for R hip for travel. Pharmacy staff in room , pt had call light and all needs in reach before left. ASSISTANT PROFESSOR OF COMMUNICATION discussed mobility and pt ready for paperwork DC per pt request when left room. Gait Assessment Gait Gait Assistance Required: Standby Assistance,Contact Guard Assist,Minimum Assistance,1 Person Assist Distance (Feet) 300 Able to Maintain Weight Bearing Status Yes During Gait Assistive Devices Assistive Device Gait Belt,Straight Cane,Front Wheeled Walker Orthotic/Prosthetic Devices or Brace: No Gait Deviations General Gait Pattern Antalgic,Decreased Stride Length,Decreased Feet Clearance,Step-to Gait Factors Limiting Gait Function Factors Limiting Gait Function Decreased Activity Tolerance, Decreased Strength,Limited Range of Motion,Pain,Poor Balance,Poor Safety Awareness Comments Gait Comments See mobility for details. Stair Climbing Assessment Evaluation Level of Assist On Stairs Standby Assistance,Contact Guard Assistance Devices Stair Climbing Assistive Devices Straight Cane,Right Railing Technique/Endurance Stair Climbing Direction Ascend and Descend Stair Climbing Technique Step to Step Number of Steps Climbed 3 Stair Climbing Set # Repetitions (reps) 6 Comments Stair Climbing Comments Occasional cuing for proper positioning of SPC (in LUE ascending) advanced step while using RHR and leading with LLE ascend, RLE descending patterning. PT-Balance Assessment Sitting Balance and Reactions Static Sitting Balance Ability Good Dynamic Sitting Balance Ability Good Standing Balance and Reactions Static Standing Balance Ability Fair Dynamic Standing Balance Ability Fair Device Used FWW M5 PT-IP Objective Assessments Start: 04/03/21 15:13 Freq: NEEDED Status: Discharge Protocol: Document 04/03/21 13:55 AB (Rec: 04/03/21 15:32 AB [id number]) Orientation Orientation/Cognition Level of Alertness Confusional State Orientation Name Language Function Ability Hard of Hearing Safety Awareness Decreased Safety Awareness Memory Description Short Term Impaired Gross Range of Motion Lower Extremity ROM Assessment Within Functional Limits Strength Lower Extremity Strength Assessment Right Impaired Hip 3+/5 Knee 4-/5 Muscle Tone Muscle Tone WNL Yes M6 PT-IP Treatment Start: 04/03/21 15:13 Freq: NEEDED Status: Discharge Protocol: Document 04/04/21 10:10 SP (Rec: 04/04/21 12:55 SP [id number]) Physical Therapy Treatment Exercises Exercises Ankle Pumps,Gluteal Sets,Quad Sets,Heel Slides Knee ROM Measurement approx 110 deg R knee flexion AROM Education Education Provided Precautions,Weight Bearing Status,Post-Op Packet,Safety Other Treatments Other Treatment Performed Good recall to R anterior hip precautions, pre mobility, cued as needed for LLE not passing RLE and small steps during turning for maintaining no ER of R hip precautions. M7 PT-IP Assessment and Plan Start: 04/03/21 15:13 Freq: NEEDED Status: Discharge Protocol: Document 04/04/21 10:10 SP (Rec: 04/04/21 12:55 SP [id number]) PT Summary Assessment and Plan Potential Rehabilitation Potential Good Status of Condition at Evaluation Evolving Summary Impairments Pain,ROM,Strength,Balance, Coordination,Sensation,Tone, Cognition,Bed Mobility, Transfers,Gait,Activity Tolerance Progress Towards Goals Progressing Toward Goals Assessment Summary pt requiring SBA with mobility , CGA>SBA during transfers and gait using FWW, CGA- Min A during gait using SPC, stair mgt R HR and SPC in LUE ascending CGA> SBA with occasional required cues for proper patterning safety. pt has a slight delay in following directions with cues . Completed caregiver training with daughter. Pt is ok to return home wiht family to assist her when medically stable. She is already set up with outpt therapy. Goals Bed Mobility Goal Independent Transfer Goal Independent,Front Wheeled Walker Gait Goal Independent,Front Wheel Walker Gait Distance 200 Other Goals up/down 18 steps using R rail SBA Days to Meet Goals 5 Frequency of Treatment Frequency Of Treatment Twice a Day Treatment Plan Physical Therapy Treatment Plan Bed Mobility Training,Transfer Training,Gait Training, Therapeutic Exercise,Balance Retraining,Post Op Education, Discharge Planning,Hot or Cold Pack,Neuromuscular Re-ed, Coordination Retraining,Manual Therapy Other Recommendations and Next Treatment Le ex, transfers, gait LRAD, Focus balance activities. Precautions Anterior Hip Precautions No Hip Extension,No Hip External Rotation Other Precautions RLE WBAT Recommendations To Nursing Amount of Assist Needed Standby Assistance,1 Person Assist Discharge Recommendations PT Discharge Recommendations Home with 24/7 Assist Available,Outpatient PT Transportation Needs at Discharge Private Vehicle
== END 2021-04-04 11:10 | disposition home or self-care (01) ==
LOC: OR 06:11 → AC 06:12
PROVIDERS: PCP Physician Assistant; Referring Provider Orthopaedic Surgery; Visit Provider Orthopaedic Surgery
PROC: (CPT 27130; principal; 2021-04-03 07:45)
DX: M16.11 Unilateral primary osteoarthritis, right hip (principal); I10 Essential (primary) hypertension
CPT/HCPCS: 27130; 36415; 73502; 76000; 85014; 85018; 97116; 97162; 97530; C1776; C9290; J0171; J0690; J1100; J2405; J2704; J3010

== ENCOUNTER → 2022-03-20 09:17 | Outpatient (CLI) | payer MEDICARE, SELFPAY ==
[2021-04-03 12:13] VITALS: BMI 28.5
[2022-03-20 10:58] LABS: Add Manual Diff / Slide Review NO; Basophils Absolute Auto 0 /uL (0-100); Basophils Percent Auto 0.6 % (0-2); Eosinophils Absolute Auto 200 /uL (0-450); Eosinophils Percent Auto 2.4 % (2-4); Hematocrit 37.1 % (36-46); Hemoglobin 12.4 g/dL (12.0-16.0); Lymphocytes Absolute Auto 2400 /uL (1100-4500); Lymphocytes Percent Auto 31.6 % (25-40); Mean Corpuscular HGB Conc 33.5 % (30-36); Mean Corpuscular Hemoglobin 29.2 PG (26-34); Mean Corpuscular Volume 87.1 fL (80-100); Monocytes Absolute Auto 700 /uL (0-900); Monocytes Percent Auto 9.1 % (3-14); Neutrophils Absolute Auto 4300 /uL (1500-7000); Neutrophils Percent Auto 56.3 % (50-75); Platelet Count 281 X10^3/uL (150-400); Red Blood Cell Count 4.26 X10^6/uL (4.0-5.2); Red Cell Distribution Width 13.6 % (11.6-14.8); White Blood Cell Count 7.7 X10^3/uL (4.5-11.0)
[2022-03-20 11:33] LABS: BUN Creatinine Ratio 25.8 (6-22); Blood Urea Nitrogen 23 mg/dL (7-17); Calcium 9.4 mg/dL (8.4-10.2); Carbon Dioxide 28 mmol/L (22-32); Chloride 102 mmol/L (98-107); Estimated Glomerular Filt Rate > 60 mL/min (>60); Glucose 84 mg/dL (80-110); HEMOLYSIS < 15 (0-50); Potassium 4.5 mmol/L (3.4-5.1); Sodium 135 mmol/L (137-145)
[2022-03-20 11:36] LABS: Hemoglobin A1C% w Est Avg Glu 5.4 % (4.0-6.0)
[2022-03-20 12:50] LABS: Appearance Urine UA CLEAR; Bilirubin Urine UA NEGATIVE (NEGATIVE); Color Urine UA YELLOW; Glucose Urine UA NEGATIVE (Negative); Ketones Urine UA NEGATIVE (NEGATIVE); Leukocyte Esterase Urine UA 1+ (NEGATIVE); Nitrite Urine UA NEGATIVE (Negative); Occult Blood Urine UA TRACE-LYSED (Negative); Protein Urine UA NEGATIVE (Negative); Specific Gravity Urine UA 1.015 (1.000-1.035); Urobilinogen Urine UA 0.2 E.U./dL (0.2)
[2022-03-20 13:07] LABS: Squamous Epithelial Cell Urine 1-5 /HPF (0-5/HPF); WBC Urine 1-5/HPF (0-5/HPF)
[2022-03-20 13:08] LABS: RBC Urine 0-1/HPF (0-5/HPF)
[2022-03-20 13:11] LABS: Bacteria Urine Few (2-10); Culture Indicated Urine Specimen Cultured
== END ==
PROVIDERS: PCP Physician Assistant; Referring Provider Orthopaedic Surgery; Visit Provider Orthopaedic Surgery
DX: Z01.818 Encounter for other preprocedural examination (principal); Z01.812 Encounter for preprocedural laboratory examination; R73.9 Hyperglycemia, unspecified; N39.0 Urinary tract infection, site not specified
CPT/HCPCS: 36415; 80048; 81001; 83036; 85025; 87086; 93005

== ENCOUNTER → 2022-05-08 15:07 | Outpatient (CLI) | payer MEDICARE, SELFPAY ==
[2021-04-03 12:13] VITALS: BMI 28.5
[2022-05-08 17:11] LABS: COVID19 -Nasal RAPID Negative (Negative)
== END ==
PROVIDERS: PCP Physician Assistant; Referring Provider Orthopaedic Surgery; Visit Provider Orthopaedic Surgery
DX: Z20.822 Contact with and (suspected) exposure to COVID-19 (principal)
CPT/HCPCS: 87635; C9803

== ENCOUNTER 2022-05-09 06:17 | Day surgery (SDC) | payer MEDICARE, SELFPAY ==
[2021-04-03 12:13] VITALS: BMI 28.5
[2022-05-01 08:46] VITALS: BMI 28.5
[2022-05-09] VITALS (13 sets, daily range): BP systolic 118–151; BP diastolic 44–101; PULSE 51–85; RESP 10–20; TEMP 33.8–37.2; O2SAT 95–99; BMI 28.5
--- NOTE | 2022-05-09 06:00 | DI.RAD.S_ITS ---
PROCEDURE: XR HIP W PEL IF DONE LT 2V INDICATIONS: GELACIO LEFT ANTERIOR TECHNIQUE: Multiple spot fluoroscopic intraoperative images. COMPARISON: [facility], CR, XR HIP W PEL IF DONE RT 2V, 04/03/2021, 11:35. FINDINGS: Spot fluoroscopic intraoperative images demonstrate hardware components in expected positions related to a left total hip arthroplasty. Right total hip arthroplasty is partially imaged. IMPRESSION: Intraoperative images demonstrate hardware components in expected positions. Approved by: Pablo Moncada M.D. on 05/09/2022 at 19:53
[2022-05-09] MEDS: VANCOMYCIN 1,000 MG/200 ML PIGGYBACK 200 MG IV (06:49)
[2022-05-09] MEDS: CELECOXIB 200 MG CAPSULE PO (06:50)
[2022-05-09] MEDS: ACETAMINOPHEN 325 MG TABLET 975 MG PO (06:50)
[2022-05-09] MEDS: LACTATED RINGERS 1,000 ML 84 ML IV ×3 (06:50→10:31)
--- NOTE | 2022-05-09 07:31 | PM.PREOP ---
Pre-operative Note COVID-19 COVID-19 status: Negative Interval Note History & Physical reviewed/Exam performed by Physician: Yes Changes to H&P: No
--- NOTE | 2022-05-09 07:35 | P.OP_ITS ---
Operative Date/Time/Diagnoses Date of procedure: 05/09/22 Time of procedure: 07:45 Pre-op diagnosis: left hip OA Post-op diagnosis: same Procedure & Clinicians Procedure: Left total hip arthroplasty anterior approach Same procedure as scheduled: Yes Indications: The patient has had progressively worsening left hip pain with radiographic lindsay ges consistent with arthritis. Non-operative management has failed and the patient has requested total hip replacement. The risks, benefits and alternatives to surgery were discussed with the patient prior to proceeding. Risks discussed included, but were not limited to, failure to relieve pain, leg length discrepancy, dislocation, stiffness, infection, nerve damage, deep venous thrombosis, pulmonary embolism, stroke, coma, heart attack, permanent paralysis and , as well as the potential need for eventual revision of the prosthetic. Surgeon: Candelaria To Writer Technical Publications: Charlene De León Anesthesia Type: General and Spinal Operative Notes Findings: Severe left hip arthritis, soft bone, adequate stability Closure Type: primary Specimen(s): none sent Prosthetic devices, grafts, tissues, transplants, or devices: To and Nephew 54 mm R3 cup, 36 x -3 Oxinium head, size 7 standard offset anthology,one 6.5 mm screw, neutral poly liner Estimated Blood Loss (mL): 250 Blood products transfused: none Procedure in detail: The patient was brought to the operating room. Patient was carefully positioned in the supine position. Time-out was performed and antibiotics were given. Anesthesia was induced. She was positioned in the on the table in order to allow hyperextension of the hip. The left lower extremity was prepped and draped in a standard sterile fashion. An anterior left hip incision was made 1 fingerbreadth lateral to the anterior superior iliac spine and extended distally towards the greater trochanter. Dissection was carried out through skin and subcutaneous tissues. Superficial hemostasis was achieved. The fascia over the tensor fascia edenilson was defined and incised with a knife. Two Allis clamps were used to grasp the fascia. Tensor fascia edenilson was retracted laterally. A gelpi retractor was placed. Dissection was carried out down along the neck. The circumflex vessels were carefully identified and cauterized with the Aqua Mantis. There was good visualization of the femoral neck. A Cobra was placed superior to the neck and the gluteus fibers were carefully stripped from that superior aspect of the capsule. A 2nd retractor was placed along the inferior aspect of the neck. The rectus insertion along the capsule was partially released. A 3rd retractor that was then gently placed over the rim of the acetabulum under the rectus. Capsule was carefully incised and released from the intertrochanteric line circumferentially superior to the mid sagittal line and inferiorly to the mid sagittal line until the lesser trochanter was palpable. A tag stitch was placed both in the superior and inferior limb of the capsular insertion. Along the acetabulum capsule was also released up to the mid sagittal 12:00 position. A portion of the labrum was resected. A saw was used to perform an osteotomy at the level of the intertrochanteric line and the junction of the superior femoral neck leaving approximately 1 finger breath of residual inferior neck above the lesser trochanter. A 2nd cut was made along the femoral neck at the base of the head and a napkin ring of neck was removed. Corkscrew was placed in the femoral head and the head was removed without difficulty. Retractors were then repositioned around the acetabulum. Residual labrum was resected and additional osteophytes were removed. A reamer that was 4 mm below the templated size was placed by hand in the acetabulum and it was reamed to centralize the acetabulum. It was then reamed up to 2 under the templated size and fluoroscopy was brought in to confirm the position of the reaming and depth of reaming. I reamed 1 under the anticipated size and touched the rim with line to line reaming. A trial cup was placed and noted that it was appropriately sized and fluoroscopy confirmed position and depth. The component was open and inserted without difficulty fluoroscopic imaging was used to confirm that the cup had been adequately seated and was well positioned. It was further stabilized with a single screw. Neutral poly liner was placed. The cup was tested and noted to be stable. Attention was then directed to the femur. The femur was gently hyperextended additional capsular release was performed as needed in order to allow adequate visualization of the proximal femur with elevation of the femur. Patient was placed in a hyperextended slightly adducted position with maximum external rotation. Box osteotome was used to check for any residual neck as well as sclerotic bone along the trochanter. Madison pepper was placed in the femur. Additional broaching was performed. Canal finder was used to determine the alignment of the canal and position. Size 1 broach was placed. The canal was then appropriately broached up to the templated size as long as there was adequate stability of the broach and serial advancement of the broach without excessive impingement. Specific attention was directed at avoiding varus attempting to direct the distal aspect of the broach more anteriorly and avoiding excessive anteversion. Trial reduction showed acceptable range of motion, good stability, no posterior impingement, roman catholic of leg length and appropriate lateral shuck. I also hyperflexed the hip and checked that there was no impingement anteriorly and there was good stability with flexion, adduction and internal rotation. Marcaine and Exparel were injected. The stem was placed without difficulty. Repeat trial reduction and x-ray showed acceptable overall position, length, and no evidence of the femoral fracture. Final head was placed. Wound was meticulously irrigated with normal saline. The hip was reduced and additional Exparel and Marcaine were injected. The capsule was closed with interrupted nonabsorbable sutures. The fascia of the tensor was closed with interrupted and running Vicryl. No drain was placed. Any tensor fascia edenilson muscle that appeared to be contused or injured which was a minimal amount was carefully resected. Capsule around the tensor was injected with Exparel and Marcaine. The skin was closed with barbed stitches for the subcutaneous tissue and skin. We also used surgical glue. The wound was dressed sterilely. Brief Betadine soak was also used and was meticulously irrigated with normal saline. Patient was transferred to recovery room in satisfactory condition. Complications: none Post-operative Condition: stable Disposition: Acute Care Plan for aftercare: The patient will be maintained on a standard total hip replacement protocol with weight bearing as tolerated and anterior hip precautions. The patient will receive Aspirin and sequential compression devices for DVT prophylaxis. The patient will be discharged home when safe for the home environment.
[2022-05-09] MEDS: CEFAZOLIN 2 GM/100 ML PREMIX 100 ML IV ×3 (08:00→23:49)
--- NOTE | 2022-05-09 08:34 | SUR.OPER ---
Supine on padded Etta table with bilateral legs secured in padded positioning boots and suspended in positioning spars, operative leg in traction per surgeon. Head on one pillow. Arm on non-operative side secured on padded armboard <90 degrees abduction. Arm on operative side padded and resting across chest then secured with tape over sheet. Padded perineal post in place per surgeon.
[2022-05-09] MEDS: TRANEXAMIC ACID 1,000 MG VIAL 2000 MG INJ ×2 (09:23→10:33)
[2022-05-09] MEDS: BUPIVACAINE 0.25% (PF) 60 ML, EPINEPHrine 0.3 MG INJ (09:25)
[2022-05-09] MEDS: BUPIVACAINE LIPOSOME 266 MG/20 ML VIAL INJ (09:26)
--- NOTE | 2022-05-09 11:15 | DI.RAD.S_ITS ---
PROCEDURE: XR HIP W PEL IF DONE LT 2V INDICATIONS: POST OP LEFT ANTERIOR HIP TECHNIQUE: AP pelvis and lateral view of the left hip acquired. COMPARISON: [facility], CR, XR PELVIS WITH LATERAL HIP LEFT, 02/27/2022, 14:58. [facility], CR, XR HIP W PEL IF DONE LT 2V, 05/09/2022, 9:35. FINDINGS: Bones: Patient is status post left total hip arthroplasty, with hardware components in expected positions. The hip joint appears congruent. The visualized bony structures appear intact. Stable appearance of a right total hip arthroplasty. Soft tissues: Overlying postoperative changes are noted. No suspicious soft tissue densities. IMPRESSION: Status post left total hip arthroplasty with expected postoperative appearance. Approved by: Pablo Moncada M.D. on 05/09/2022 at 17:01
[2022-05-09] MEDS: OXYCODONE IR 5 MG TABLET PO (11:25)
[2022-05-09] MEDS: ACETAMINOPHEN 325 MG TABLET 650 MG PO ×3 (12:34→23:49)
[2022-05-09] MEDS: IBUPROFEN 400 MG TABLET PO ×3 (12:34→23:51)
[2022-05-09] MEDS: LACTATED RINGERS 1,000 ML 125 ML IV ×2 (12:36→21:10)
--- NOTE | 2022-05-09 15:08 | PT-IP ANOTE ---
Checked on pt and pt refused PT. stated that she is moving ok and want to take a nap for now.
--- NOTE | 2022-05-09 16:06 | PT.IIE ---
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) Hx of bilateral cataract extraction (2021) Hx of partial thyroidectomy (~1961) Status post tonsillectomy and adenoidectomy Medical History (Last Updated 04/08/21 @ 21:08 by Gloria Tomlin) Arrhythmia Atrial fibrillation (~2017) Benign meningioma Colon cancer screening Fractures Hearing loss History of Mohs micrographic surgery for skin cancer History of urinary incontinence Hypertension, essential Measles Meningioma Mumps Osteoarthritis Osteopenia Osteoporosis Positive PPD Routine general medical examination at health care facility Screening for breast cancer Screening for lipid disorders Screening for osteoporosis Tinnitus Venous stasis Wears glasses Physical Therapy Inpatient Evaluation/Re-Eval M1 PT/OT-IP Prior Functional Status Start: 05/09/22 17:57 Freq: NEEDED Status: Active Protocol: Document 05/09/22 16:06 AB (Rec: 05/09/22 18:06 AB [id number]) Medical Review Prior Functional Status Medical History Reviewed Yes Communication able to make needs known Mobility and Gait pt stated that she is in dependent with all mobilities and ambulation wihtout AD but uses a SPC for outdoor mobility due L hip pain Social History Household Members none Living Arrangements House Number of Floors (Floors) 3 or More Floors Number of Stairs To Enter/Railing? 3 steps R rail to enter the house 16 steps R rail to get to bedroom level Home Environment High Toilet,Walk in Shower Home Equipment Front Wheel Walker,Straight Cane,Shower Seat without Backrest Additional Social History Comment pt stated that her friend will check on her and may assist her if needed M2 PT-IP Current Condition Start: 05/09/22 17:57 Freq: NEEDED Status: Active Protocol: Document 05/09/22 16:06 AB (Rec: 05/09/22 18:06 AB [id number]) Physical Therapy Current Condition Current Condition Evaluation Date 05/09/22 Treatment Diagnosis s/p L GELACIO anterior approach; difficulty in walking Onset Date 05/09/22 M3 PT-IP Subjective Start: 05/09/22 17:57 Freq: NEEDED Status: Active Protocol: Document 05/09/22 16:06 AB (Rec: 05/09/22 18:06 AB [id number]) Subjective Physical Therapy Visit Type Type Initial Evaluation Visit Start Time 16:06 Visit Stop Time 16:50 Total Visit Minutes 44 Number of LIBRARY ACQUISITIONS TECHNICIAN Visits 0 Physical Therapy Visit Comments Patient Comments agreeable to do PT M4 PT-IP Mobility and Gait Start: 05/09/22 17:57 Freq: NEEDED Status: Active Protocol: Document 05/09/22 16:06 AB (Rec: 05/09/22 18:06 [email or web address]) PT-Bed Mobility Assessment Supine to Sit Supine to Sit Standby Assistance Sit to Supine Sit to Supine Standby Assistance PT-Transfer Assessment Sit to and From Stand Sit to and from Stand Minimal Assistance,1 Person Assistance,Use of Upper Extremities Equipment Transfer Assistive Device Gait Belt,Front Wheeled Walker Orthotic/Prosthetic Devices or Brace: No Transfers Transfer Destination Bedside Commode Transfer Technique Stand Step Pivot Transfer Ability Level of Assist Minimal Assistance,1 Person Assistance,Use of Upper Extremities Comments Mobility Comments reviewed hip precautions with pt and requires cues to recall . pt requested to use the toilet. completed supine to sit SBA. able to sit on EOB SBA. completed sit to stand min A and step transfer to bedside commode min A using FWW. completed sit to stand from bedside commode min A and able to maintain standing CGA while completing hygiene care . pt ambulated in room ~ 30 ft using FWW min A. pt ambulated back to bed. call light and table placed within reach. Gait Assessment Gait Gait Assistance Required: Minimum Assistance Distance (Feet) 30 Able to Maintain Weight Bearing Status Yes During Gait Assistive Devices Assistive Device Gait Belt,Front Wheeled Walker Orthotic/Prosthetic Devices or Brace: No Gait Deviations General Gait Pattern Decreased Stride Length, Decreased Feet Clearance,Step- to Gait Factors Limiting Gait Function Factors Limiting Gait Function Decreased Activity Tolerance, Decreased Strength,Difficulty Following Directions,Limited Range of Motion,Pain,Poor Balance,Poor Safety Awareness PT-Balance Assessment Sitting Balance and Reactions Static Sitting Balance Ability Normal Dynamic Sitting Balance Ability Good Standing Balance and Reactions Static Standing Balance Ability Fair Dynamic Standing Balance Ability Fair Device Used FWW M5 PT-IP Objective Assessments Start: 05/09/22 17:57 Freq: NEEDED Status: Active Protocol: Document 05/09/22 16:06 AB (Rec: 05/09/22 18:06 AB [id number]) Orientation Orientation/Cognition Level of Alertness Alert Orientation Name,Place,Situation Language Function Ability No Deficits Noted Safety Awareness Decreased Safety Awareness Memory Description Short Term Impaired Gross Range of Motion Lower Extremity ROM Assessment Within Functional Limits Strength Lower Extremity Strength Assessment Left Impaired Hip 3+/5 Knee 4-/5 Muscle Tone Muscle Tone WNL Yes M6 PT-IP Treatment Start: 05/09/22 17:57 Freq: NEEDED Status: Active Protocol: Document 05/09/22 16:06 AB (Rec: 05/09/22 18:06 AB [email or web address]) Physical Therapy Treatment Education Education Provided Precautions,Weight Bearing Status,Post-Op Packet,Safety M7 PT-IP Assessment and Plan Start: 05/09/22 17:57 Freq: NEEDED Status: Active Protocol: Document 05/09/22 16:06 AB (Rec: 05/09/22 18:06 AB [email or web address]) PT Summary Assessment and Plan Potential Rehabilitation Potential Fair Status of Condition at Evaluation Evolving Summary Impairments Pain,ROM,Strength,Balance, Coordination,Sensation,Tone, Cognition,Bed Mobility, Transfers,Gait,Activity Tolerance Assessment Summary pt s/p L GELACIO anterior approach and just had surgery this morning. pt requiring min A with ambulation using fWW. pt lives alone and will not have consistent assistance at home . d/c plan depending on progress but will require HHPT when pt goes home. will continue to assess. Goals Bed Mobility Goal Independent Transfer Goal Independent,Front Wheeled Walker Gait Goal Independent,Front Wheel Walker Gait Distance 200 Other Goals up/down 16 steps using R rail mod I Days to Meet Goals 5 Frequency of Treatment Frequency Of Treatment Twice a Day Treatment Plan Physical Therapy Treatment Plan Bed Mobility Training,Transfer Training,Gait Training, Therapeutic Exercise,Balance Retraining,Post Op Education, Discharge Planning,Hot or Cold Pack,Neuromuscular Re-ed, Coordination Retraining,Manual Therapy Precautions Anterior Hip Precautions No Hip Extension,No Hip External Rotation Weight Bearing Status Weight Bearing Status Weight Bear as Tolerated Allowed Weight Bearing Amount (enter % LLE WBAT or #) (%) Recommendations To Nursing Amount of Assist Needed 1 Person Assist Discharge Recommendations PT Discharge Recommendations Home with Assistance,Home Health Transportation Needs at Discharge Private Vehicle
--- NOTE | 2022-05-09 20:55 | PC.NURSE ---
Pt refused scheduled bedtime medication. Pt had taken own home medication prior to nurse arrival i room. When offered medication Pt informed this RN that sh had in fact alreaady taken them. When discussing need to take medications and have them checked by Pharmacy jose armando refused stating that last time they were taken to pharmacy her home medications were lost. therefor, she was not willing to release her medication. No other medications scheduled for tonight other than PRN Tylenol and Ibuprofen which patient is willing to take from our stock. discussed need to not take any other medications from home.
[2022-05-10 00:14] VITALS: BP 105/64; PULSE 76; RESP 18; TEMP 36.5; O2SAT 94
[2022-05-10 03:29] VITALS: BP 127/60; PULSE 68; RESP 18; TEMP 36.4; O2SAT 95
[2022-05-10] MEDS: LACTATED RINGERS 1,000 ML 125 ML IV (04:45)
[2022-05-10 06:37] LABS: Hematocrit 28.3 % (36-46); Hemoglobin 9.7 g/dL (12.0-16.0)
--- NOTE | 2022-05-10 07:00 | PM.DS.1 ---
History of Present Illness History of Present Illness Date Patient Seen: 05/10/22 Time Patient Seen: 07:00 Chief complaint: OPB Narrative: Operative Date/Time/Diagnoses Date of procedure: 05/09/22 Time of procedure: 07:45 Pre-op diagnosis: left hip OA Post-op diagnosis: same Procedure & Clinicians Procedure: Left total hip arthroplasty anterior approach Same procedure as scheduled: Yes Indications: The patient has had progressively worsening left hip pain with radiographic changes consistent with arthritis. Non-operative management has failed and the patient has requested total hip replacement. The risks, benefits and alternatives to surgery were discussed with the patient prior to proceeding. Risks discussed included, but were not limited to, failure to relieve pain, leg length discrepancy, dislocation, stiffness, infection, nerve damage, deep venous thrombosis, pulmonary embolism, stroke, coma, heart attack, permanent paralysis and , as well as the potential need for eventual revision of the prosthetic. Surgeon: Candelaria To Lollypop Machine Operator: Charlene De León Anesthesia Type: General and Spinal Operative Notes Findings: Severe left hip arthritis, soft bone, adequate stability Closure Type: primary Specimen(s): none sent Prosthetic devices, grafts, tissues, transplants, or devices: To and Nephew 54 mm R3 cup, 36 x -3 Oxinium head, size 7 standard offset anthology,one 6.5 mm screw, neutral poly liner Estimated Blood Loss (mL): 250 Blood products transfused: none Discharge Providers Provider Discharge Date: 05/10/22 Primary care physician: Lizbeth Diaz PA-C Consults: 05/09/22 06:00 Consult to Anesthesiology Routine Comment: Consulting Provider: Anesthesiologist Reason for consultation: Regional block for post operative pain control 05/09/22 11:51 Consult to Discharge Planning Routine Comment: Consult to Physical Therapy Evaluate & Treat Comment: Physician Instructions: post op GELACIO protocol Consult to Respiratory Therapy Evaluate & Treat Comment: Physician Instructions: Evaluate and treat Discharge provider: Charlene De León PA-C Summary Hospital Course Discharge Diagnosis: Left hip osteoarthritis, s/p left total hip arthroplasty Hospital Course: Ms Bajwa's hospital course was unremarkable. On POD# 1 she was feeling well and wanted to go home. She was eating and voiding without difficulty and her pain was well-controlled with oral medications. She was evaluated by PT prior to discharge. Exam Vital Signs (past 8 hours): - 05/10/22 00:14 05/10/22 03:29 Temperature 97.7 F 97.6 F Pulse Rate 76 68 Respiratory Rate 18 18 Blood Pressure 105/64 127/60 Pulse Oximetry 94 95 Oxygen Flow Rate 0 0 Oxygen Delivery Method Room Air Oxygen Flow Rate 0 Narrative Exam Narrative: 4/5 strength in left hip flexors, quadriceps, hamstrings; 5/5 DF, PF, EHL. Sensation to light touch intact throughout LLE. Calves soft, compressible and nontender. Aquacel dressing CDI. Objective Labs Result Diagrams: 05/10/22 06:13 Labs: Laboratory Results - last 24 hr 05/10/22 06:13 Hgb 9.7 L Hct 28.3 L PFSH Medical History (Updated 04/08/21 @ 21:08 by Gloria Tomlin) Arrhythmia Atrial fibrillation (~2017) Benign meningioma Colon cancer screening Fractures Hearing loss History of Mohs micrographic surgery for skin cancer History of urinary incontinence Hypertension, essential Measles Meningioma Mumps Osteoarthritis Osteopenia Osteoporosis Positive PPD Routine general medical examination at health care facility Screening for breast cancer Screening for lipid disorders Screening for osteoporosis Tinnitus Venous stasis Wears glasses Surgical History (Updated 05/01/22 @ 09:26 by Leigh Jaeger RN) Anesthesia History of bladder suspension procedure (~1994) 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 Pt has all post-op medications at home. ASA 81 mg BID for VTE prophylaxis, outpt PT, f/u in office in 2 weeks. Discharge Plan Discharge Plan Patient Disposition: Home Discharge orders & Medications Discharge Orders: Discharge (Order); Ordered 05/10/22 Ordered By: Charlene De León Prescriptions: New aspirin 81 mg Tablet,Delayed Release (Dr/Ec) 81 mg PO BID Qty: 1 0RF Rx Instructions: BID x 6 weeks for VTE prophylaxis docusate sodium 100 mg Capsule 100 mg PO BID PRN (Reason: constipation) Qty: 1 0RF ibuprofen 400 mg Tablet 400 mg PO Q6HR PRN (Reason: fever or pain) Qty: 1 0RF Continued prednisolone acetate 1 % Drops,Suspension 1 drp EYE-LEFT TID acetaminophen 500 mg tablet 500 mg PO Q4H MDD 6 tablets (3000 mg) per day PRN (Reason: Pain) Qty: 90 0RF nitroglycerin 0.4 mg tablet, sublingual 0.4 mg sublingual Q5M PRN (Reason: Chest Pain) Rx Instructions: do not exceed 3 doses per episode. IF NO RELIEF, CALL 911. metoprolol tartrate 25 mg tablet See Rx Instructions .ROUTE .COMPLEX Rx Instructions: 25mg in the morning and 12.5mg in the evening; Discontinued aspirin [Adult Low Dose Aspirin] 81 mg tablet,delayed release (DR/EC) 81 mg PO DAILY Follow up/Referrals: Lizbeth Diaz PA-C [Primary Care Provider] - Candelaria To MD [Physician] - As previously scheduled (Follow up w/ Dr To on 05/22/2022 @ 10:30 am at [employer] [facility] Diet/Activity/Treatments Diet: Diet as Tolerated Activity: Weightbearing as tolerated on left leg. Anterior hip precautions. Cold/Heat Therapy: Ice to hip as needed for pain. Skin/Wound/Dressing Care Report to your healthcare provider any signs of infection, such as:: chills, fever, night sweats, unusual drainage and unusual redness Dressing: May shower. Leave Aquacel dressing in place until follow up visit. No bathing or otherwise soaking incision. Visit Report/Discharge Packet Instructions: DI for Hip Replacement Stand Alone Forms: Surgery Discharge Discharge Data Primary Care Provider: Lizbeth Diaz Attending Provider: Candelaria To Quality VTE Deep Vein Thrombosis/Pulmonary Embolism Present on Admission: No
[2022-05-10 07:53] VITALS: BP 126/59; PULSE 70; RESP 16; TEMP 36.3; O2SAT 93
[2022-05-10] MEDS: prednisoLONE OPHTH SUSP 1 DROPS EYE-LEFT (08:19)
[2022-05-10] MEDS: DOCUSATE 100 MG CAPSULE PO (08:20)
[2022-05-10] MEDS: ASPIRIN EC 81 MG TABLET PO (08:20)
[2022-05-10] MEDS: METOPROLOL IR 25 MG TABLET PO (08:20)
--- NOTE | 2022-05-10 08:58 | CM.DANOTE ---
Patient is an 82 yo female who was admitted on 05/09/22 for LTHA. Pt has MCR and AARP for insurance and her PCP is Lizbeth Diaz. EMR was reviewed. Per Ortho PA, pt tolerated procedure well and ambulated with PT and stable for d/c home today after AM PT. Per PT, recommending safe d/c home with assist and HH. SW met bedside with pt and explained role and she confirms she lives at home alone on [facility] [address] [facility] but has very supportive friends locally and her Dtr/DPCLYDE Martina as well. Pt has hx of RTHA and knows her precautions and what to expect for healing and is independent at baseline, drives, uses cane for longer distances. Pt denies any hx of HH or SNF and does not anticipate need for HH at d/c as she plans to do outpt PT and her friend will provide transport home today and assist as needed. SW provided [facility] brochure in case pt changes her mind once home. Plan: SW to follow for plan of pt d/c home with friend POV and [place] the [address] [place] [address] and priority boarding form already filled out by HARRIETT. JORGE Mccray Discharge Planning/Care Management CM Discharge Assessment Start: 05/10/22 08:56 Freq: Status: Active Protocol: Document 05/10/22 08:56 BF (Rec: 05/10/22 08:58 BF [id number]) Discharge Planning Assessment Assigned Reiki Practitioner JORGE Carter DPCLYDE/Assigned Designee Name Donna Mack Contact Information [phone] Advance Directives? Yes Advance Directives on File No History Provided By Patient,Medical Record Has Patient been admitted in last 30 No days? Prior Living Arrangements House Household Members none Type of transporation used prior to Drives own vehicle admit Independent with ADL's Yes Is patient alert and oriented? Yes Caregiver for Another No Community Services used prior to Physical Therapy admission: DME Already Rented / Owned Cane Patient/Family Preference OP PT Therapy Comment pt declines need for HH Barriers to Discharge No Discharge Plan Home Community Services Physical Therapy Transportation Arrangement Friend providing transport back to [place] today Referrals Initiated None needed Additional Comment pt declines need for HH Whiteboard Updated in Patient Room with Yes name and ext. 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 Reviewed Via Phone Assessment Assessment Completed With Patient Diagnostic Results BMP/CMP,CBC,EKG,Urinalysis Comment Labs/ECG @ [facility] 03/20/22, COVID screen-needs to schedule Primary Care Provider Lizbeth Diaz Seen Specialist in Last 12 Months Yes Specialist Seen Orthopedist Primary Language Guamanian Preferred Language Guamanian Fitness Coordinator Required No Height 171.45 cm Weight 83.915 kg Body Mass Index (BMI) 28.5 Hearing Ability Hard of Hearing,Use of Hearing Aid Visual Assist Glasses Dentition Type Teeth, Natural Present Barriers to Learning Auditory Comment Pt denies any difficulties Hx Anesthesia Reactions No: I'm really sensitive to anesthesia, would like least amount Hx Family Anesthesia Reaction No Hx Malignant Hyperthermia No Hx Blood Transfusions No Anesthesia Review Requested No Avionics Electronics Technician No alcohol intake current alcohol intake frequency a few times a week Smoking Status Never smoker Substance Use Type does not use Pain Present Pain Reported Musculoskeletal Symptoms Abnormal Gait,Back Pain, Difficulty Walking,Joint Pain History of Falling (Recent or History of No ) Patient is completely paralyzed or No completely immobile Prosthesis or Orthotic Device Cane Mental Status Oriented to own ability Is patient on oxygen? No Does patient have FORDE/SOB Yes: FORDE Hx Sleep Apnea No CPAP/BIPAP use not prescribed Currently Taking a Beta Luciano Yes: Metoprolol Can You Climb a Flight of Stairs Without No SOB Hx Chest Pain Yes: No current symptoms Hx SOB Yes Hx Syncope or Dizziness No Anti-Coagulant Therapy Yes: 81mg ASA-advised pt to check w/PCP if to hold or continue Has a Stock Preparer Yes: Last visit 02/21/21- previously scanned to patient' s record Stock Preparer name Dr. Palmer Cardiac Testing No Hx Pacemaker/ICD No Pacemaker Rep Required? No Diet Type At Home Regular dysphagia No Bladder Pattern Incontinent,Nocturia Urinary Catheter Present No Hx Urinary Self Catheterization No Diabetes No HgbA1C 5.4 Date 03/20/22 Patient No Lactating No Hx Drug Resistant Organism No Presence of External or Internal Medical Yes: Right knee prosthesis, Devices bilat eye IOLs Have you had any close contact with No someone diagnosed with COVID-19? Received a COVID vaccine? Yes Received all doses? No Marital Status Single Lives With none Prior Living Arrangements House Number of Floors (Floors) 3 or More Floors Support System Child/Children Does the Patient Have Assistance After No: Pt does not plan to have Surgery anyone stay with her, it's not necessary Patient Discharge Plan Description Return Home Comment Pt not advised on length of stay per surgeon Additional comment Lives on [facility] Feels Safe in Current Environment Yes Been Physically Hurt or Threatened By a No Person in Current Environment Do you have thoughts of harming yourself None or others? Are you currently considering suicide? No Do you have a plan to hurt yourself or No Plan others? Do You Have Any Spiritual Beliefs That No May Affect Your HC Choices? Do You Have Any Cultural Practices That No May Affect Your HC Choices? Who Can We Speak to About Patient's Care Family, friends Identifying Code for Release of Patient Declines to issue Information Health Care Proxy/Next of Kin Alfa (daughter) Martina (daughter ) Health Care Proxy Phone Number [facility]: [phone] [facility]: Emergency Contact Name Alfa (daughter) Martina (daughter ) Emergency Contact Phone Number [facility]: [phone] Martina: Advance Directives? No Power of Violent Crimes Detective No PAC Instructions Do not shave/clip surgical site,Durable medical equipment ,Medications to take/avoid, Nasal antibiotic,No ETOH/ petroleum product on skin DOS, NPO,Post-op transportation, Sensory aids,Sturdy shoes/ comfortable clothes,Do not bring valuables and remove jewelry
--- NOTE | 2022-05-10 10:03 | PT.IPTN ---
Current Diagnoses Bilateral primary osteoarthritis of hip (05/09/22) Surgery Performed Operation Date: 05/09/22 07:45 Actual Procedures p Total Hip Arthroplasty/Anterior Approach(Left) - Candelaria To MD Physical Therapy Treatment Note M2 PT-IP Current Condition Start: 05/09/22 17:57 Freq: NEEDED Status: Active Protocol: Document 05/09/22 16:06 AB (Rec: 05/09/22 18:06 AB [id number]) Physical Therapy Current Condition Current Condition Evaluation Date 05/09/22 Treatment Diagnosis s/p L GELACIO anterior approach; difficulty in walking Onset Date 05/09/22 M3 PT-IP Subjective Start: 05/09/22 17:57 Freq: NEEDED Status: Active Protocol: Document 05/10/22 10:03 AB (Rec: 05/10/22 12:04 AB [email or web address]) Subjective Physical Therapy Visit Type Type Treatment Note Visit Start Time 10:03 Visit Stop Time 10:27 Total Visit Minutes 24 Number of CONFERENCE SERVICES COORDINATOR Visits 0 Physical Therapy Visit Comments Patient Comments pt is agreeable to do PT Therapy Pain Assessment Pain When Pain Assessed During Mobility Pain Present Pain Present Pain Reported Location Right Hip Scale Used pain scale not stated M4 PT-IP Mobility and Gait Start: 05/09/22 17:57 Freq: NEEDED Status: Active Protocol: Document 05/10/22 10:03 AB (Rec: 05/10/22 12:04 AB [email or web address]) PT-Bed Mobility Assessment Supine to Sit Supine to Sit Standby Assistance Sit to Supine Sit to Supine Standby Assistance PT-Transfer Assessment Sit to and From Stand Sit to and from Stand Standby Assistance,Use of Upper Extremities Equipment Transfer Assistive Device Gait Belt,Front Wheeled Walker Orthotic/Prosthetic Devices or Brace: No Comments Mobility Comments pt able to recall hip precautions. completed supine to sit SBA. needed increase time to complete task. completed sit to stand SBA and ambulated in the hallway using FWW ~ 100 ft SBA. completed up/down steps using R rail CGA ascending but requiring min to mod descending. completed up/down steps again using R rail + SPC and completed SBA to CGA. pt ambulated back to her room using FWW SBA. requested to go back to bed. completed sit to supine SBA. positioned pt in bed. call light and table placed within reach. Gait Assessment Gait Gait Assistance Required: Standby Assistance Distance (Feet) 100 Able to Maintain Weight Bearing Status Yes During Gait Assistive Devices Assistive Device Gait Belt,Front Wheeled Walker Orthotic/Prosthetic Devices or Brace: No Gait Deviations General Gait Pattern Decreased Stride Length, Decreased Feet Clearance Factors Limiting Gait Function Factors Limiting Gait Function Decreased Activity Tolerance, Decreased Strength,Limited Range of Motion,Pain,Poor Balance,Poor Safety Awareness Stair Climbing Assessment Evaluation Level of Assist On Stairs Standby Assistance,Contact Guard Assistance Devices Stair Climbing Assistive Devices Straight Cane,Right Railing Technique/Endurance Stair Climbing Direction Ascend and Descend Stair Climbing Technique Step to Step Number of Steps Climbed 3 Stair Climbing Set # Repetitions (reps) 2 M5 PT-IP Objective Assessments Start: 05/09/22 17:57 Freq: NEEDED Status: Active Protocol: Document 05/09/22 16:06 AB (Rec: 05/09/22 18:[facility] Orientation Orientation/Cognition Level of Alertness Alert Orientation Name,Place,Situation Language Function Ability No Deficits Noted Safety Awareness Decreased Safety Awareness Memory Description Short Term Impaired Gross Range of Motion Lower Extremity ROM Assessment Within Functional Limits Strength Lower Extremity Strength Assessment Left Impaired Hip 3+/5 Knee 4-/5 Muscle Tone Muscle Tone WNL Yes M6 PT-IP Treatment Start: 05/09/22 17:57 Freq: NEEDED Status: Active Protocol: Document 05/10/22 10:03 AB (Rec: 05/10/22 12:04 [facility] Physical Therapy Treatment Education Education Provided Precautions,Safety M7 PT-IP Assessment and Plan Start: 05/09/22 17:57 Freq: NEEDED Status: Active Protocol: Document 05/10/22 10:03 AB (Rec: 05/10/22 12:04 [facility] PT Summary Assessment and Plan Potential Rehabilitation Potential Fair Summary Impairments Pain,ROM,Strength,Balance, Coordination,Sensation,Tone, Cognition,Bed Mobility, Transfers,Gait,Activity Tolerance Progress Towards Goals Slow Progress due to Activity Tolerance Assessment Summary pt requiring SBA to CGA with mobility using FWW. pt plans to go home and her friend will assist as needed but cannot stay with her. pt has outpt PT scheduled. Goals Bed Mobility Goal Independent Transfer Goal Independent,Front Wheeled Walker Gait Goal Independent,Front Wheel Walker Gait Distance 200 Other Goals up/down 16 steps using R rail mod I Days to Meet Goals 5 Frequency of Treatment Frequency Of Treatment Twice a Day Treatment Plan Physical Therapy Treatment Plan Bed Mobility Training,Transfer Training,Gait Training, Therapeutic Exercise,Balance Retraining,Post Op Education, Discharge Planning,Hot or Cold Pack,Neuromuscular Re-ed, Coordination Retraining,Manual Therapy Precautions Anterior Hip Precautions No Hip Extension,No Hip External Rotation Weight Bearing Status Weight Bearing Status Weight Bear as Tolerated Allowed Weight Bearing Amount (enter % LLE WBAT or #) (%) Recommendations To Nursing Amount of Assist Needed 1 Person Assist Discharge Recommendations PT Discharge Recommendations Home with Assistance,Home Health Transportation Needs at Discharge Private Vehicle
[2022-05-10] MEDS: ACETAMINOPHEN 325 MG TABLET 650 MG PO (11:17)
[2022-05-10] MEDS: IBUPROFEN 400 MG TABLET PO (11:18)
[2022-05-10 12:37] VITALS: BP 126/53; PULSE 64; RESP 16; TEMP 36.5; O2SAT 97
--- NOTE | 2022-05-10 14:25 | PC.NURSE ---
Pt left floor at 1425 via wheelchair, Pt had all paperwork and signed, all questions answered. Pt denied nausea or pain. VS WNL. Pt had all personal belongings, and given a priority boarding pass for [place].
== END 2022-05-10 14:27 | disposition home or self-care (01) ==
LOC: OR 06:20 → AC 09:41
PROVIDERS: PCP Physician Assistant; Referring Provider Orthopaedic Surgery; Visit Provider Orthopaedic Surgery
PROC: (CPT 27130; principal; 2022-05-09 07:45)
DX: M16.12 Unilateral primary osteoarthritis, left hip (principal); I10 Essential (primary) hypertension
CPT/HCPCS: 27130; 01214; 36415; 73502; 76000; 85014; 85018; 97116; 97162; 97530; C1776; C9290; J0171; J0690; J2250; J2405; J2704; J3010

== ENCOUNTER → 2022-07-26 08:55 | Outpatient (CLI) | payer MEDICARE, SELFPAY ==
[2022-05-09 12:26] VITALS: BMI 28.5
[2022-07-26 09:55] LABS: Cholesterol 202 mg/dL (140-199); HDL Cholesterol 74 mg/dL (40-60); LDL Cholesterol Calculated 107 mg/dL (<100); Triglycerides 104 mg/dL (35-150)
== END ==
PROVIDERS: PCP Physician Assistant; Referring Provider Internal Medicine Cardiovascular Disease; Visit Provider Internal Medicine Cardiovascular Disease
DX: E78.5 Hyperlipidemia, unspecified (principal)
CPT/HCPCS: 36415; 80061